=== PATIENT | female | born 1970 | race Two or more races ===

== ENCOUNTER → 2023-08-14 15:12 | Outpatient (BNVA) | payer OTHER, SELFPAY | PROVIDERS: PCP Internal Medicine; Visit Provider Physician Assistant ==

== ENCOUNTER 2023-09-09 15:24 | Outpatient (AMB) | payer OTHER, SELFPAY ==
--- NOTE | 2023-09-09 15:25 | MHC.OFFVISWM ---
Intake VS Expanded 09/09/23 15:36 BP 171/79 H Blood Pressure Location Rt brachial Blood Pressure Position Sitting Pulse 108 H Pulse Source Pulse Oximeter Temp 97.2 F Temperature Source Temporal Artery Scan Pulse Oximetry 96 Oxygen Delivery Method Room Air Height 5 ft 4 in Weight 215 lb BMI 36.9 Body Fat % 45.6 Body Fat Mass 98.2 Fat Free Mass 116.8 Visceral Fat Rating 13.0 Body Water % 38.7 Body Water Mass 83.2 Muscle Mass/Score 110.8 Basal Metabolic Rate/Score 1,642 Intake Visit Reasons: SWL vs MWL BMI 36.6 Lead Teller Required: No Allergies amoxicillin Allergy (Mild, Uncoded 09/09/23 15:31) swelling Medication List - Last Reconciled 09/09/23 by KEVON Molina duloxetine 120 mg PO DAILY metoprolol succinate ER 50 mg PO DAILY valsartan-hydrochlorothiazide 320-25 mg 1 tab PO DAILY HPI HPI Comments History of Present Illness Details Pt is here to start the [facility] Weight Management surgical weight loss program. She heard about our program from her family. Her goal is to lose weight and achieve a healthy lifestyle as well as to improve, if not resolve, obesity related medical conditions, including htn. She reports first being concerned about her weight 10 years ago, highest weight to date was 215. Current weight is 215 pounds with a BMI of 36.9. Her weight upon gfirst presentation to the [facility] on 08/14/23 was 213.2 pounds with a BMI of 36.6. She has tried multiple methods of weight loss including fad diets, hypnosis without permanent results. She lives with her family. 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 She wakes at:?630 am, and goes to bed at?10 pm. Dinner is at 6pm. Breakfast: coffee w cream AM snack: special K cereal, raison bran w whole milk or DD refresher and DD sandwich Lunch: skip or oui yogurt w granola topping PM snack: cheese, peanuts, candy, Dinner: rice and beans meat, salad sometimes. After dinner: chips, popcorn, cake, cookies Other snacks: as above Liquids: 32 oz water, rare lurdes keily on weekends, iced tea, DD strawberry refresher Alcohol/marijuana/tobacco intake: 3 drinks 2 x per month, no cannabis, no tobacco Exercise: none, could join a gym. GERD score: 5 CLIFFORD score: 3 ESS score: 10 QOL score: 80 PFSH Surgical History Hx of bladder endoscopy Hx of colonoscopy Family History Paternal Aunt Breast cancer Stomach cancer Father Throat cancer Social History Alcohol intake: current Alcohol intake frequency: holidays/special occasions only Alcohol type: wine and hard liquor Patient Tobacco Use Status: Never used Tobacco Physical Exam Const General: cooperative, healthy appearing and no acute distress Orientation/consciousness: patient oriented x3 HEENT Head: Yes normal to inspection Ears: hearing grossly normal bilaterally General nose exam: Normal external nose present Face and sinus: Yes normal facial exam Eyes General: appearance normal, both eyes and all related structures Resp Effort & Inspection: normal respiratory effort Auscultation: clear to auscultation bilaterally Cardio Rate: regular rate Rhythm: regular rhythm Heart sounds: S1 normal heart sound present and S2 normal heart sound present GI Inspection: Yes normal to inspection, No distended and Yes obesity Palpation (GI): Soft to palpation, nontender and no guarding Auscultation: normal bowel sounds Skin General skin exam: no rashes or lesions noted Neuro General: patient oriented x3 Extrem General: No edema Psych Appearance: grossly normal Mental Status: mental status grossly normal Speech and movement: Normal speech and movement present Affect: normal affect Attitude: cooperative Assessment & Plan Assessment & Plan (1) Obesity (BMI 30-39.9): Code(s): E66.9 - Obesity, unspecified Plan: This is a?53 yo female who will start our SWL program to prepare for bariatric surgery.? Blood work, h pylori , CXR, ECG, Abd US and UGI have been ordered. She is being scheduled for RD and BH initial consultations. She will start SWL classes and watch the first three videos before her next appointment. ? Adequate sleep of 7-8 hours per night discussed, awakening at 06:30 and going to bed at 10 ? Purchase body composition analyzer scale (Renpho recommended) and check weight weekly. The best time to do this is first thing in the morning after going to the bathroom. 1. Nutritional counseling: Be sure to careful read the number of scoops per shake Start with 2 Celebrate Rebuild shakes ([facility], [employer], [employer]) First shake (1.5 scoops in 12 oz unsweetened almond milk) at 730am-930am, Second shake (1 scoop in 10 oz of unsweetened almond milk) at 1030am-1230pm 2 Celebrate protein bars (Celebrate bars at [facility], [employer], [employer]) First bar at 130pm-330pm. Dinner at 530pm (8 forks of protein and 8 forks of salad/vegetables). Meal to include lean meat (beef, fish, pork, turkey, chicken), cooked vegetables or a salad with olive oil and/or fruits (berries, pears, apples, kiwi). Avoid salt, breads, potatoes, rice, pasta, desserts. Second bar at 730pm-930pm. Try to drink 64 oz of water daily and avoid soda and juices. ?2. Each shake would be drunk slowly, like coffee in a period of 2 hours. ?3. Cut each bar in 4 pieces and eat each piece in 30 min ?to make each bar last 2 hours. ?4. I emphasized the importance of measuring accurately the food portion and measure it carefully when serving the food on the plate ?5. The meal portions include 8 full-size forks of meat and 8 full-size forks of salad. You always eat the meat portion but you can replace up to half of the forks of salad/vegetables with rice, potatoes or pasta, or a fruit ?if you like. The less you do it the better weight loss will be. ?6. One full-size fork is what can be scooped on the fork without falling aside and not what can be bit with the fork. Use regular forks like those you find in a typical restaurant. ?7.? Please send me weight measurements as soon as possible and then once a week. Always include your diet and exercise plan. Alternatively come weekly at the office for weight checks and send me the measurements. ?8. Exercise counseling: Begin by watching a stretching for beginners video. Start slowly and begin to stretch your muscles. You should do this before and after each exercise session to prevent injury. Please join [employer] gym near your home. Ask the manager automotive or one of the trainers how to use the machines if you are unfamiliar with them. Start elliptical with a resistance of 2. Increase resistance by 1 every 3 min to your most comfortable resistance with a max resistance of 8. Reduce the resistance by 1 every 3 minutes back down to 2 and repeat cycles for 300 calories. Alternatively, start treadmill with a speed of 3.0 and incline of 0, increasing incline by 1 every 3 minutes to the highest comfortable level (max 6 for now) then decrease in the same fashion. Repeat process to a goal of 300 calories. Goal of 2000 calories burned or more weekly. You may also consider use of the stationary bike. The easiest would be to chose the fat-burn or interval training program on the machine and do this until you reach the 300 calorie goal. Alternatively, you can manually adjust the resistance in a similar fashion as mentioned above, (resistance of 2-8 with a goal speed of 12 mph). Tracking calories is essential. 9. Alternatively start walking outside daily, tracking calories with a goal of 300 calories per day, daily. You can download the chaparrita [employer] which can track your time, distance and calories while walking outside. You press start in the chaparrita when you start and then stop when you are finished. 10.? It is important to communicate by text weekly your weight and if you are having any problems with the plans. It is also advised to avoid now and for 18 months after surgery. 11. Please get labs, EKG and chest X-Ray within 1 week. 12. Discussed and answered all questions regarding?obtained consent to participate in the [place] [facility]?Registry. 13. Please follow the diet plan exactly, without any change. If you do not like something about the plan or you feel hungry, you need to communicate with me so I can help you revise the plan. You should not change the plan yourself. Text me at [phone] 14. Goal is to lose at least 12 pounds in the first month 15. Goal is to lose 10% of your weight before surgery, which is about 21 lbs. Ultimate weight goal: 194 lbs before surgery Patient is morbidly obese and is not considered stable at this time.?I spent a total of 70 minutes reviewing/updating records, examining the patient and counseling the patient on weight management as detailed above. Orders: Orders Hemoglobin A1c Today E66.9 - Obesity, unspecified, I10 - Essential (primary) hypertension H Pylori Breath Test Today E66.9 - Obesity, unspecified, I10 - Essential (primary) hypertension Zinc Today E66.9 - Obesity, unspecified, I10 - Essential (primary) hypertension Vitamin A Today E66.9 - Obesity, unspecified, I10 - Essential (primary) hypertension TSH reflex Free T4 Today E66.9 - Obesity, unspecified, I10 - Essential (primary) hypertension Vitamin D 25-OH Total Today E66.9 - Obesity, unspecified, I10 - Essential (primary) hypertension US abdomen comp w elastography Today E66.9 - Obesity, unspecified, I10 - Essential (primary) hypertension XR chest 2V Today E66.9 - Obesity, unspecified, I10 - Essential (primary) hypertension ECG 12 lead EKG Today E66.9 - Obesity, unspecified, I10 - Essential (primary) hypertension Insulin Today E66.9 - Obesity, unspecified, I10 - Essential (primary) hypertension Complete Blood Count Auto Diff Today E66.9 - Obesity, unspecified, I10 - Essential (primary) hypertension Lipid Panel Today E66.9 - Obesity, unspecified, I10 - Essential (primary) hypertension IRON PROFILE Today E66.9 - Obesity, unspecified, I10 - Essential (primary) hypertension Comprehensive Met. Panel Today E66.9 - Obesity, unspecified, I10 - Essential (primary) hypertension Vitamin B12 and Folate Today E66.9 - Obesity, unspecified, I10 - Essential (primary) hypertension C Reactive Protein Today E66.9 - Obesity, unspecified, I10 - Essential (primary) hypertension Vitamin B1 Today E66.9 - Obesity, unspecified, I10 - Essential (primary) hypertension Ferritin Today E66.9 - Obesity, unspecified, I10 - Essential (primary) hypertension FL upper GI w air Today E66.9 - Obesity, unspecified, I10 - Essential (primary) hypertension Referrals Nutrition/Dietitian Referral E66.9 - Obesity, unspecified, I10 - Essential (primary) hypertension Behavioral Health Referral E66.9 - Obesity, unspecified, I10 - Essential (primary) hypertension Coding Level of Care Code New Pt Level 5 (25131) Diagnoses Obesity (BMI 30-39.9) E66.9 Time Spent (min) 70
[2023-09-09 15:36] VITALS: BP 171/79; PULSE 108; TEMP 36.2; O2SAT 96; BMI 36.9
== END 2023-09-09 16:54 | disposition home or self-care (01) ==
PROVIDERS: PCP Internal Medicine; Visit Provider Physician Assistant Surgical
DX: E66.9 Obesity, unspecified (principal); Z68.36 Body mass index [BMI] 36.0-36.9, adult
CPT/HCPCS: 99205

== ENCOUNTER → 2023-09-09 15:24 | Outpatient (BNVA) | payer OTHER, SELFPAY | PROVIDERS: PCP Internal Medicine; Visit Provider Physician Assistant Surgical ==

== ENCOUNTER 2023-09-20 07:27 | Outpatient (REF) | payer OTHER, SELFPAY ==
[2023-09-20 07:58] LABS: MANUAL DIFF FLAG NO
[2023-09-20 08:20] LABS: Basophils Percent Auto 0.2 % (0-2); Eosinophils Absolute Auto 0.1 X10*3/uL (0.0-0.4); Eosinophils Percent Auto 0.7 % (0-4); Hematocrit 39.8 % (37.0-47.0); Imm Gran Abs Auto 0.03 X10*3/uL (0.00-0.03); Imm Gran Pct Auto 0.3 % (0.0-0.4); Lymphocytes Absolute Auto 2.6 X10*3/uL (1.2-4.9); Lymphocytes Percent Auto 25.6 % (20-40); Mean Corpuscular HGB Conc 32.7 g/dl (31.0-35.0); Mean Corpuscular Hemoglobin 26.9 pg (27.0-33.0); Mean Corpuscular Volume 82.2 fL (80.0-98.0); Mean Platelet Volume 9.1 fL (9.4-12.3); Monocytes Absolute Auto 0.7 X10*3/uL (0.1-1.2); Monocytes Percent Auto 6.9 % (2-11); Neutrophils Absolute Auto 6.6 x10*3/uL (2.0-8.3); Neutrophils Percent Auto 66.3 % (45-73); Platelet Count 431 X10*3/uL (160-400); Red Blood Count 4.84 X10*6/uL (4.20-5.50); Red Cell Distribution Width 14.1 % (11.0-16.0)
[2023-09-20 08:21] LABS: Estimated Average Glucose 134 mg/dL; Hemoglobin A1c % 6.3 % (<6.0)
[2023-09-20 08:50] LABS: Alanine Aminotransferase 92 U/L (0-31); Albumin Level 4.3 g/dL (3.5-5.0); Alkaline Phosphatase 60 U/L (39-117); Anion Gap 16 (12-20); Aspartate Amino Transferase 80 U/L (5-31); Bilirubin Total 0.4 mg/dL (0.0-1.0); Blood Urea Nitrogen 23 mg/dL (9-16); C Reactive Protein 1.66 mg/dL (< or = 0.50); Calcium 9.9 mg/dL (8.4-10.2); Carbon Dioxide 27 mmol/L (22-29); Chloride 98 mmol/L (96-108); Cholesterol 249 mg/dL (<200); Estimated Glomerular Filt Rate > 60; Glucose Random 146 mg/dL (60-115); HDL Cholesterol 58 mg/dL (>40); Iron 75 mcg/dL (30-160); LDL Cholesterol Calculated 170 mg/dL (<100); Percent Iron Saturation 24 % (15-50); Potassium 3.2 mmol/L (3.3-5.1); Sodium 138 mmol/L (135-145); Total Iron Binding Capacity 308 mcg/dL (228-428); Total Protein 7.9 g/dL (6.5-8.0); Triglycerides 107 mg/dL (<150); Unsaturated Iron Binding 233 ug/dL
[2023-09-20 09:08] LABS: Ferritin 350 ng/mL (10-250); Insulin 24 uU/mL (2-29); TSH reflex Free T4 1.43 uIU/mL (0.32-4.0)
[2023-09-20 09:37] LABS: Vitamin B12 426 pg/mL (200-900)
[2023-09-23 13:54] LABS: Zinc 76 mcg/dL (60-130)
[2023-09-24 23:57] LABS: Vitamin A 60 mcg/dL (38-98)
[2023-09-25 15:43] LABS: Vitamin B1 11 nmol/L (8-30)
== END 2023-09-20 07:28 | disposition home or self-care (01) ==
LOC: HO.LAB 07:27
PROVIDERS: Visit Provider Physician Assistant Surgical
DX: E66.9 Obesity, unspecified (principal); I10 Essential (primary) hypertension
CPT/HCPCS: 36415; 80053; 80061; 82306; 82607; 82728; 82746; 83036; 83525; 83540; 84425; 84443; 84590; 84630; 85025; 86140

== ENCOUNTER 2023-09-24 13:00 | Outpatient (AMB) | payer OTHER, SELFPAY ==
--- NOTE | 2023-09-24 12:38 | A.OFFWM_ITS ---
Intake Intake Visit Reasons: (TV) BH Intake Allergies amoxicillin Allergy (Mild, Uncoded 09/09/23 15:31) swelling PFSH Surgical History Hx of bladder endoscopy Hx of colonoscopy Family History Paternal Aunt Breast cancer Stomach cancer Father Throat cancer Social History Alcohol intake: current Alcohol intake frequency: holidays/special occasions only Alcohol type: wine and hard liquor Patient Tobacco Use Status: Never used Tobacco Behavioral Health Assessment Weight Management Therapy Therapy Notes Details Patient is looking to have weight loss surgery to help improve her health and quality of life. She reported a history of depression in her 20's, she went briefly to therapy at that time when she became a single mother. Also saw a somatic therapist in the past. She has no history of problems with drugs or alcohol. Presenting Concerns Referral Source provider Reason for referral weight loss surgery evaluation Precipitating Event obesity Living Situation Current Living Situation Own At risk of losing current housing? No Satisfied with current living situation? No Comments Patient lives with her , son and two grandchildren. Food/Weight/Diet Expectations of change weight loss and maintenance History/Relationship with food At home alone, bored and would eat. She reported eating sandwiches, yogurts, Icelandic food, rice, beans, air fried foods, snacking after dinner on chips, cupcakes, cake or other salty/sweet foods, skipping breakfasts. History/Relationship with weight Patient reported being at her heaviest. 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 No Do you feel out of control when you eat a large amount of food in a short period of time? No Do you eat large amounts of food rapidly and typically alone? Yes Night Eating Do you wake up at least once during the night to eat? No If you wake up in the night, do you find that it is necessary to eat something in order to fall back asleep? No Do you have little or no appetite in the morning and feel very hungry in the evening, often overeating between dinner and when you go to bed? Yes Social History Family history and relationship Patient has two adult sons. She is . She is three sisters. Her mother is living but with dementia and not doing well, Father ten years ago. Parental/Familial plug sorter obligations grandchildren live with her as well as her adult son. Developmental history and status no issues Social support , two of her sisters Adventism/Spirituality Buddhist Cultural/Ethnic information Legal Involvement and History Current or historical involvement with the legal system? none Education Highest grade completed high school, some college Preferred learning style Auditory, Verbal, Written, Learn by doing and Visual Currently enrolled in educational program? No Interested in further educational program? 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 No Meaningful activities camping, movies, spending time with family, in the past she would do salsa classes. Financial Situation Describe current financial situation Comfortable Financial assistance? None Service Service? No Mental Health and Addiction Treatment Current/Past substance abuse? No Current/Past addictive behavior concerns? No Medical and Physical Health Summary Physical exam in the last year? Yes Pain Screening Current pain? No Pain in the last few months? No Medications Is the patient compliant with medications? Yes Does the patient have Issa Guardian in place? Not applicable Does the patient use complimentary health approaches? No Trauma/Abuse History History of trauma? Yes Community Violence Past Questionnaires PHQ-9 Over the last 2 weeks, how often have you been bothered by any of the following problems? 1. Little interest or pleasure in doing things: several days 2. Feeling down, depressed, or hopeless: not at all 3. Trouble falling or staying asleep, or sleeping too much: more than half the days 4. Feeling tired or having little energy: more than half the days 5. Poor appetite or overeating: more than half the days 6. Feeling bad about yourself - or that you are a failure or have let yourself or your family down: several days 7. Trouble concentrating on things, such as reading the newspaper or watching television: several days 8. Moving or speaking so slowly that other people could have noticed. Or the opposite - being so fidgety or restless that you have been moving around a lot more than usual: not at all 9. Thoughts that you would be better off or of hurting yourself in some way: not at all Total score: 9 Source: Developed by Drs. Ramone Myers, Michelle More, Steve Sheldon and colleagues, with an educational doris from [employer]. Binge Eating Scale Group 1 A. I don't feel self-conscious about my wt. or body size when I'm with others. B. I feel concerned about how I look to others, but it normally does not make me fell disappointed with myself C. I do get self-conscious about my appearance and wt. which makes me feel disappointed in myself. D. I feel very self-conscious about my wt. and frequently I feel intense shame and disgust for myself. I try to avoid social contacts because of my self- consciousness. Response Group 1: C Group 2 A. I don't have any difficulty eating slowly in the proper manner. B. Although I seem to gobble down foods, I don't end up feeling stuffed because of eating to much. C. At times, I tend to eat quickly and then, I feel uncomfortably full afterwards. D. I have the habit of bolting down my food, without really chewing it. When this happens I usually feel uncomfortably stuffed because I've eaten to much. Response Group 2: B Group 3 A. I feel capable to control my eating urges when I want to. B. I feel like I have failed to control my eating more than the average person. C. I feel utterly helpless when it comes to feeling in control of my eating urges. D. Because I feel so helpless about controlling my eating I have become very desperate about trying to get control. Response Group 3: B Group 4 A. I don't have the habit of eating when I'm bored. B. I sometimes eat when I'm bored, but often I'm able to get busy and get my mind off food. C. I have a regular habit of eating when I'm bored, but occasionally, I can use some other activity to get my mind off eating. D. I have a strong habit of eating when I'm bored. Nothing seems to help me breath the habit. Response Group 4: B Group 5 A. I'm usually physically hungry when I eat something. B. Occasionally, I eat something on impulse even though I really am not hungry. C. I have the regular habit of eating foods, that I might not really enjoy, to satisfy a hungry feeling even though physically, I don't need the food. D. Although I'm not physically hungry, I get a hungry feeling in my mouth that only seems to be satisfied when I eat a food, like sandwich, that fills my mouth. Sometimes, when I eat the food to satisfy my mouth hunger, I then spit the food out so I won't gain weight. Response Group 5: A Group 6 A. I don't feel any guilt or self-hate after I overeat. B. After I overeat, occasionally I feel guilt or self-hate. C. Almost all the time I experience strong guilt or self-hate after I overeat. Response Group 6: A Group 7 A. I don't lose total control of my eating when dieting even after periods when I overeat. B. Sometimes when I eat a forbidden food on a diet, I feel like I blew it and eat even more. C. Frequently, I have the habit of saying to myself, I've blown it now, why not go all the way, when I overeat on a diet. When that happens I eat more. D. I have a regular habit of starting a strict diets for myself but I break the diets by going on an eating binge. My life seems to be either a feast or famine. Response Group 7: D Group 8 A. I rarely eat so much food that I feel uncomfortably stuffed afterwards. B. Usually about once a month, I each such a quantity of food, I end up feeling very stuffed. C. I have regular periods during the month when I eat large amounts of food, either at mealtime or at snacks. D. I eat so much food that I regularly feel quite uncomfortable after eating and sometimes a bit nauseous. Response Group 8: A Group 9 A. My level of calorie intake does not go up very high or go down very low on a regular basis. B. Sometimes after I overeat, I will try to reduce my caloric intake to almost nothing to compensate for the excess calories I've eaten. C. I have a regular habit of overeating during the night. It seems that my routine is not to be hungry in the morning but overeat in the evening. D. In my adult years, I have had week-long periods where I practically starve myself. This follows periods when I overeat. It seems I live a life of either feast or famine. Response Group 9: D Group 10 A. I usually am able to stop eating when I want to. I know when enough is enough. B. Every so often, I experience a compulsion to eat which I can't seem to control. C. Frequently, I experience strong urges to eat which I seem unable to control, but at other times I can control my eating urges. D. I feel incapable of controlling urges to eat. I have a fear of not being able to stop eating voluntarily. Response Group 10: A Group 11 A. I don't have any problem stopping eating when I feel full. B. I usually can stop eating when I feel full but occasionally overeat leaving me feeling uncomfortably stuffed. C. I have a problem stopping eating once I start and usually I feel uncomfortably stuffed after I eat a meal. D. Because I have a problem not being able to stop eating when I want, I sometimes have to induce vomiting to relieve my stuffed feeling. Response Group 11: B Group 12 A. I seem to eat just as much when I'm with others, Family social gatherings as when I'm by myself. B. Sometimes, when I'm with other persons, I don't eat as much as I want to eat because I'm self-conscious about my eating. C. Frequently, I eat only a small amount of food when others are present, because I'm very embarrassed about my eating. D. I feel so ashamed about overeating that I pick times to overeat when I know no one will see me. I feel like a closet eater. Response Group 12: B Group 13 A. I eat three meals a day with only an occasional between meal snack. B. I eat 3 meals a day, but I also normally snack between meals. C. When I am snacking heavily, I get in the habit of skipping regular meals. D. There are regular periods when I seem to be continually eating, with no planned meals. Response Group 13: C Group 14 A. I don't think much about trying to control unwanted eating urges. B. At least some of the time, I feel my thoughts are pre-occupied with trying to control my eating urges. C. I feel that frequently I spend much time thinking about how much I ate or about trying not to eat anymore. D. It seems to me that most of my waking hours are pre-occupied by thoughts about eating or not eating. I feel like I'm constantly struggling not to eat. Response Group 14: B Group 15 A. I don't think about food a great deal. B. I have strong craving for food but they last only for brief periods of time. C. I have days when I can't seem to think about anything else but food. D. Most of my days seem to be pre-occupied with thoughts about food. I feel like I live to eat. Response Group 15: A Group 16 A. I usually know whether or not I'm physically hungry. I take the right portion of food to satisfy me. B. Occasionally, I feel uncertain about knowing whether or not I'm physically hungry. A these times it's hard to know how much food I should take to satisfy me. C. Even though I might know how many calories I should eat, I don't have any idea what is a normal amount of food for me. Response Group 16: B Binge Eating Score: 17 Score less than 17 Minimal Risk Score between 18-26 Moderate Risk Score between 27-46 High Risk Assessment & Plan Assessment & Plan (1) Obesity (BMI 30-39.9): Code(s): E66.9 - Obesity, unspecified (2) HTN (hypertension): Code(s): I10 - Essential (primary) hypertension Plan Patient is doing well and is cleared for surgery when ready. She has no serious mental health barriers and was encouraged to utilize all supports Telehealth Telehealth Location of provider rendering services: other Location of patient: other Patient Identification confirmed using: Name, : Yes Telehealth method: voice only Patient verbally consented to treatment: Yes Patient verbally consented to billing insurance company: Yes Patient informed of any privacy concerns related to visit: Yes Minutes spent on Phone/Video with Pt.: 45 Coding Level of Care Code Tele Psy Diag Eval (87703) Diagnoses Obesity (BMI 30-39.9) E66.9 HTN (hypertension) I10 Time Spent (min) 45
== END 2023-09-24 13:12 | disposition home or self-care (01) ==
LOC: HO.HBST 13:00
PROVIDERS: PCP Internal Medicine; Visit Provider Counselor Mental Health
DX: E66.9 Obesity, unspecified (principal); I10 Essential (primary) hypertension
CPT/HCPCS: 90791

== ENCOUNTER → 2023-09-24 13:00 | Outpatient (BNVA) | payer OTHER, SELFPAY | PROVIDERS: PCP Internal Medicine; Visit Provider Counselor Mental Health ==

== ENCOUNTER 2023-09-26 09:20 | Outpatient (REF) | payer OTHER, SELFPAY ==
--- NOTE | ~2023-09-26 | US_ITS ---
EXAMINATION: US COMPLETE ABDOMEN WITH LIVER ELASTOGRAPHY CLINICAL INFORMATION: Obesity COMPARISON: None available. TECHNIQUE: Real-time imaging of the abdominal viscera. Noninvasive ultrasound liver fibrosis assessment is performed using [employer] ElastPQ point quantification shear wave elastography (2D-SWE) with a C5-2 MHz transducer. Multiple elastography samples are obtained. FINDINGS: PANCREAS: The visualized pancreatic head and body are normal in appearance. The remainder of the pancreas is obscured from visualization by the overlying bowel gas. ABDOMINAL AORTA: The proximal, middle, and distal aortic segments are normal in caliber. INFERIOR VENA CAVA: Visualized portions are normal. LIVER: Echotexture is increased suggestive of fatty infiltration with focal fatty sparing adjacent to the gallbladder liver upper normal in size. Liver normal in contour. No focal lesion or intrahepatic biliary duct dilatation. The right lobe measures 17 cm in length. The left lobe measures 14 cm in length. Portal flow is normal Shear wave liver elastography median stiffness is 1.2 m/s (reference: normal median stiffness is 1.3 m/s or less). IQR/median stiffness to assess sampling precision is 0.02 (reference: good quality data set is IQR/median stiffness of 0.15 or less). GALLBLADDER: Unremarkable. No definite gallstones. Normal thickness gallbladder wall. COMMON BILE DUCT: Normal in caliber measuring 0.40, 0.6 cm in diameter. RIGHT KIDNEY: Normal. No hydronephrosis. No renal calculi or focal parenchymal lesions. The kidney measures 11 cm in maximum dimension. LEFT KIDNEY: Normal. No hydronephrosis. No renal calculi or focal parenchymal lesions. The kidney measures 11 cm in maximum dimension. SPLEEN: Normal. The spleen measures 9 cm in maximum dimension. FREE FLUID: None. US/US abdomen comp w elastography IMPRESSION: 1. Impression: Echogenic liver suggestive of fatty infiltration with focal fatty sparing adjacent to the gallbladder. Liver upper normal in size. 2. Liver elastography: Normal. Adequate liver sampling. REFERENCE: Society of Radiologists in Ultrasound Liver Stiffness Thresholds (2020): LIVER STIFFNESS THRESHOLDS: *Liver Stiffness equal or less than 1.3 m/s: High probability of being normal. *Liver Stiffness less than 1.7 m/s: In the absence of other known clinical signs, rules out compensated advanced chronic liver disease. *Liver Stiffness 1.7-2.1 m/s: Suggestive of compensated advanced chronic liver disease but need further test for confirmation. *Liver Stiffness over 2.1 m/s: Rules in compensated advanced chronic liver disease. *Liver Stiffness over 2.4 m/s: Suggestive of clinically significant portal hypertension. QUALITY OF DATA SET: *IQR/Median value equal or less than 0.15 implies a quality data set. *IQR/Median value over 0.15 implies a poor quality data set. SIGNIFICANT CHANGE FROM PRIOR EXAM: Significant change if liver stiffness measurement is 10% or greater from prior exam. OTHER CONSIDERATIONS: The stage of liver fibrosis may be overestimated in the setting of acute hepatitis, liver inflammation, elevated liver function tests, hepatic vascular congestion, obstructive cholestasis, non-fasting state, and infiltrative diseases such as amyloidosis and lymphoma. In some patients with NAFLD, the liver stiffness thresholds for compensated advanced chronic liver disease may be lower. In causes other than viral hepatitis and NAFLD, liver stiffness thresholds are not well established.
--- NOTE | ~2023-09-26 | XR_ITS ---
EXAMINATION: XR CHEST CLINICAL INFORMATION: Weight management evaluation COMPARISON: None available. TECHNIQUE: 2 views of the chest were obtained. FINDINGS: No airspace consolidation or vascular congestion. No evidence for pneumothorax. Hilar regions and pulmonary vascularity unremarkable. Pleural surfaces appear clear. There are minimal thoracic spondylitic changes. XR/XR chest 2V IMPRESSION: No evidence for acute process.
== END 2023-09-26 09:21 | disposition home or self-care (01) ==
LOC: HO.US 09:20
PROVIDERS: PCP Internal Medicine; Visit Provider Physician Assistant Surgical
DX: E66.9 Obesity, unspecified (principal); I10 Essential (primary) hypertension
CPT/HCPCS: 71046; 76700; 76981

== ENCOUNTER 2023-10-15 10:27 | Day surgery (SDC) | payer OTHER, SELFPAY ==
[2023-10-13 11:30] VITALS: BMI 36.9
--- NOTE | 2023-10-13 13:06 | P.CONAN_ITS ---
Documented by User: Angela Lira NP 10/13/23 13:07 HPI - Anesthesia Eval Consult details Narrative: 53yo F for Upper Endoscopy PMFSH Active Problems Active Problems: All Active Problems HTN (hypertension) (Acute) Obesity (BMI 30-39.9) (Acute) Family History Family History Paternal Aunt Breast cancer Stomach cancer Father Throat cancer Surgical History Surgical History Hx of bladder endoscopy Hx of colonoscopy Social History Social History Alcohol intake: current Alcohol intake frequency: holidays/special occasions on ly Alcohol type: wine and hard liquor Patient Tobacco Use Status: Never used Tobacco Use of substances other than those prescribed or required for medical reasons: No Are you DNR?: No Advance Directives: No Advance Directives Information Provided: Yes Meds Allergies Allergy/AdvReac Type Severity Reaction Status Date / Time amoxicillin Allergy Mild swelling Uncoded 10/15/23 11:13 Home Medications ?Medication ?Instructions ?Recorded ?Confirmed ?Last Taken ?Type duloxetine 60 mg capsule,delayed 120 mg PO DAILY 09/09/23 10/15/23 10/14/23 History release metoprolol succinate 50 mg 50 mg PO DAILY 09/09/23 10/15/23 10/14/23 History tablet,extended release 24 hr valsartan 320 1 tab PO DAILY 09/09/23 10/15/23 10/14/23 History mg-hydrochlorothiazide 25 mg tablet Exam Height,Weight and Vital Signs: Height 5 ft 4 in Weight 97.522 kg Pertinent Lab Results Pertinent Lab Results: Laboratory Tests 09/20/23 07:57 WBC 10.0 Hgb 13.0 Hct 39.8 Plt Count 431 H Sodium 138 Potassium 3.2 L Chloride 98 Carbon Dioxide 27 BUN 23 H Creatinine 0.83 Assessment and Plan Assessment Anesthesia Assessment: Chart Reviewed Documented by User: Beatriz Edwards MD 10/15/23 12:35 HPI - Anesthesia Eval Consult details Narrative: 53yo F for Upper Endoscopy 10/15/23: ? LBBB on monitor. Patient has no history. Will obtain 12 lead ekg. 12 lead ekg: NSR 98 . Non-specific ST-T wave abnormality PMFSH Family History Family History Paternal Aunt Breast cancer Stomach cancer Father Throat cancer Family history of problems with anesthesia: No Surgical History Surgical History Hx of bladder endoscopy Hx of colonoscopy History of Problems with Anesthesia: No Social History Social History Alcohol intake: current Alcohol intake frequency: holidays/special occasions only Alcohol type: wine and hard liquor Patient Tobacco Use Status: Never used Tobacco Use of substances other than those prescribed or required for medical reasons: No Are you DNR?: No Advance Directives: No Advance Directives Information Provided: Yes Meds Allergies Allergy/AdvReac Type Severity Reaction Status Date / Time amoxicillin Allergy Mild swelling Uncoded 10/15/23 11:13 Home Medications ?Medication ?Instructions ?Recorded ?Confirmed ?Last Taken ?Type duloxetine 60 mg capsule,delayed 120 mg PO DAILY 09/09/23 10/15/23 10/14/23 History release metoprolol succinate 50 mg 50 mg PO DAILY 09/09/23 10/15/23 10/14/23 History tablet,extended release 24 hr valsartan 320 1 tab PO DAILY 09/09/23 10/15/23 10/14/23 History mg-hydrochlorothiazide 25 mg tablet Exam Height,Weight and Vital Signs: Height 5 ft 4 in Weight 97.522 kg Vital Signs Temp Pulse Resp BP Pulse Ox O2 Del Method 10/15/23 11:45 96.9 F 104 H 16 133/79 98 Room Air Airway Mallampati Class: II TM Dist: >3cm Neck ROM: Full Loose/Missing/Broken Teeth: No (Denies broken, loose, missing teeth) Heart: RRR Lungs: CTAB Assessment and Plan Assessment Anesthesia Assessment: Anesthesia Plan Discussed and Chart Reviewed Final Anesthetic Review Family History of Problems with Anesthesia: No History of Problems with Anesthesia: No NPO: Yes ASA Class: III Final Preanesthetic Review: No Changes in Pt Med Stat, Meds/Allgs Chart Reviewed, Consent Obtained/Reviewed and Anes Risks/Benef Reviewed Patient Risk: Intermediate Assessment/Block/Sedation in SS: Assess/Block/Sedation-SS Anesthetic Plan Anesthetic Plan: MAC: and TIVA Disposition: Standard PACU
--- NOTE | 2023-10-15 | ECG_ITS ---
Test Reason : PREOP Blood Pressure : / mmHG Vent. Rate : 098 BPM Atrial Rate : 098 BPM P-R Int : 152 ms QRS Dur : 084 ms QT Int : 362 ms P-R-T Axes : 059 016 -07 degrees QTc Int : 462 ms Normal sinus rhythm Nonspecific ST and T wave abnormality Abnormal ECG No previous ECGs available Referred By: Beatriz Edwards Electronically Signed By:LATIA SORIANO MD
[2023-10-15 11:12] VITALS: BMI 34.8
[2023-10-15 11:45] VITALS: BP 133/79; PULSE 104; RESP 16; TEMP 36.1; O2SAT 98
[2023-10-15] MEDS: Lactated Ringers 1,000 ML 80 ML IVCONT (11:46)
--- NOTE | 2023-10-15 12:10 | MHC.SHP ---
Pre-Procedural Eval Section A - 24 Hr Update-Section A only Date of Service: 10/15/23 The patient is an INPATIENT: No The patient has been examined within 24 hours of the surgical procedure. The History & Physical has been completed within 30 days and I have reviewed it.: No Section B - Complete if H&P > 30 days Chief Complaint: Morbid (severe) obesity due to excess calories Details of Present Illness: GERD Relevant Family History (Specify if Yes): No Relevant Social History: None Present Medications: None Medical History: No relevant PMH History of Previous Operations: No relevant previous surgery Allergies: Allergies Allergy/AdvReac Type Severity Reaction Status Date / Time amoxicillin Allergy Mild swelling Uncoded 10/15/23 11:13 Review of Systems Sugical H&P ROS: Negative: Constitution, Cardiovascular, Respiratory, Neurological, Psychiatric, Hem-Onc, Allergic/Immunologic, Gastrointestinal, Genitourinary, Musculoskeletal, Integumentary, Endocrine and Eyes/Ears/Nose/Throat Exam Surgical H&P Exam: Normal: HEENT, Normal: Heart, Normal: Lungs, Normal: Extremities, Normal: Abdomen, Normal: Skin and Normal: Neurological Plan Diagnosis/Plan: Unchanged (EGD to assess etiology of GERD. Risks of bleeding and perforation were discussed with the patient and she is in agreement with the plan.) I have reviewed the history and physical and performed a pertinent physical examination on my patient. No changes have occurred unless specified. Time Spent With Patient Time: Total time managing care of this patient today ____ minutes.
--- NOTE | 2023-10-15 12:13 | PM.OP ---
Brief Operative Note Date of Service: 10/15/23 Pre-op diagnosis: GERD Post-op diagnosis: same Procedure: PROCEDURE DATE: 10/15/23 PREOPERATIVE DIAGNOSIS: GERD POSTOPERATIVE DIAGNOSIS: ?Same as above. 1) Normal endoscopy PROCEDURE: Dlpzxzfa-zhllfk-axgjzolejoyj with biopsies Surgeon: Monty David M.D.. Ph.D. Compliance Representative Dealer: None ? Anesthesia: IV sedation Estimated blood loss: ?Minimal FINDINGS AND PROCEDURE: ? OPERATIVE INDICATIONS: ?The patient is a 53 year old female known to me who is interested in bariatric surgery. The patient has GERD. Based on this information I recommended an upper endoscopy to evaluate the patient's symptoms. Risks and complications of the surgery were discussed with the patient in advance particularly the possibility of perforation or bleeding that may require surgical intervention. The patient understood the risks and was in agreement with the plan. ? PROCEDURE: After informed consent was obtained by the patient, the patient was ?transferred to the Operating Room and was placed in the supine position.? After successful induction of IV sedation, a mouth block was inserted and the patient was placed in the left lateral decubitus position. An upper endoscopy was performed next, the oropharynx and esophagus appeared within the normal limits. There was no hiatal hernia. The z-line was smooth. Two biopsies were obtained from the distal esophagus 2-3 cm proximal to the GE junction and two additional biopsies from the GE junction. The stomach was entered and it appeared to be of normal size. There was no gastritis. There was no stricture or ulcer. A biopsy was obtained from the gastric fundus and antrum. No significant bleeding was noted from any of the biopsy sites. Retroflexion of the scope revealed a normal gastric fundus and a normal GE junction. The scope was then advanced into the duodenum which appeared to be normal as well. At that point the duodenum ?and the stomach were decompressed and the scope was withdrawn from the patient's mouth. The patient extubated and was transferred in stable condition to the Recovery Room for further care. I was present and performed all steps of the procedure. There were no residents to assist with this case. Cirilo David M.D., Ph.D. Surgeon: Jan David MD Anesthesia: MAC Was an Compliance Representative Dealer used for this Procedure?: No Estimated blood loss (mL): 0 IV fluids (mL): 400 Urine output (mL): 0 Pathology: other (1) antrum x1, 2) fundus x1, 3) GE junction x2, 4) distal esophagus x2) Condition: stable Disposition: PACU
[2023-10-15 13:13] VITALS: BP 143/84; PULSE 127; RESP 11; TEMP 36.5; O2SAT 100
[2023-10-15 13:28] VITALS: BP 130/86; PULSE 105; RESP 15; O2SAT 96
[2023-10-15 13:35] VITALS: BP 137/78; PULSE 96; RESP 14; TEMP 36.3; O2SAT 97
== END 2023-10-15 14:05 | disposition home or self-care (01) ==
PROVIDERS: PCP Internal Medicine; Visit Provider Surgery
PROC: 0DJ08ZZ Inspection of Upper Intestinal Tract, Via Natural or Artificial Opening Endoscopic (ICD-10-PCS; CPT 43235; principal; 2023-10-15 12:30)
DX: K21.9 Gastro-esophageal reflux disease without esophagitis (principal); E66.9 Obesity, unspecified; Z68.36 Body mass index [BMI] 36.0-36.9, adult; I10 Essential (primary) hypertension; Z88.1 Allergy status to other antibiotic agents; Z79.899 Other long term (current) drug therapy
CPT/HCPCS: 43239; 88305; 88313; 88342; 93005; J2704

== ENCOUNTER → 2023-10-15 10:27 | Outpatient (BNV) | payer OTHER, SELFPAY | PROVIDERS: PCP Internal Medicine; Visit Provider Surgery | DX: K21.9 Gastro-esophageal reflux disease without esophagitis (principal) | CPT/HCPCS: 43239 ==

== ENCOUNTER → 2023-10-15 12:15 | Outpatient (BNV) | payer OTHER, SELFPAY | PROVIDERS: PCP Internal Medicine; Visit Provider Internal Medicine Cardiovascular Disease | DX: R94.31 Abnormal electrocardiogram [ECG] [EKG] (principal) | CPT/HCPCS: 93010 ==

== ENCOUNTER 2023-10-21 09:37 | Outpatient (REF) | payer OTHER, SELFPAY ==
--- NOTE | ~2023-10-21 | FL_ITS ---
EXAMINATION: XR FLUOROSCOPY UPPER GI WITH AIR CLINICAL INFORMATION: Preop evaluation prior to bariatric surgery COMPARISON: None TECHNIQUE: Fluoroscopic air contrast upper GI examination was performed utilizing standard techniques with thin and thick barium and effervescent granules. Numerous spot images were obtained. FINDINGS: Lateral cine images of the oropharynx and hypopharynx demonstrate normal swallow mechanism with normal epiglottic inversion and soft palate elevation. No tracheal penetration, glottic or subglottic aspiration identified. No nasopharyngeal reflux present. Hypopharyngeal structures appear normal without evidence of mass or diverticulum. There was no significant cricopharyngeal achalasia. Dual and single contrast images of the esophagus demonstrate normal caliber, contour, and mucosal pattern. No evidence of stricture, mass, or ulcerations identified. Esophageal peristalsis is mildly disorganized. A small type I hiatal hernia is present. A small amount of gastroesophageal reflux is seen in the distal esophagus. Dual contrast and single contrast images of the stomach demonstrated normal contour and mucosal pattern without evidence of mass, ulceration, or other abnormality. Poor coating of the upper wall and greater curvature limits evaluation. Contrast freely passed into the gastric antrum and duodenal bulb without delay. Single and air-contrast images of the duodenal bulb demonstrate no abnormality. The duodenal sweep has a normal appearance, course, and mucosal fold appearance. No malrotation. The imaged proximal jejunum has a normal fold pattern and caliber. FLUOROSCOPY TIME: 3 minutes 17 seconds Number of Spot Images: 6 Number of Cine: 12 DOSE AREA PRODUCT: 2245 uGy-m2 (microgray-meter squared) FL/FL upper GI w air IMPRESSION: 1. Mildly disorganized esophageal peristalsis. 2. Mild gastroesophageal reflux. 3. Small type I hiatal hernia. 4. Suboptimal evaluation of the greater curvature of the stomach due to poor coating. This procedure was performed by Kennedy Alvarado PA-C, and supervised by Dr. Hoff
== END 2023-10-21 09:38 | disposition home or self-care (01) ==
LOC: HO.XRAY 09:37
PROVIDERS: PCP Internal Medicine; Visit Provider Physician Assistant Surgical
DX: E66.9 Obesity, unspecified (principal); I10 Essential (primary) hypertension
CPT/HCPCS: 74246

== ENCOUNTER → 2023-10-21 09:37 | Outpatient (BNV) | payer OTHER, SELFPAY | PROVIDERS: PCP Internal Medicine; Visit Provider Physician Assistant Surgical | DX: Z01.818 Encounter for other preprocedural examination (principal); E66.9 Obesity, unspecified | CPT/HCPCS: 74246 ==

== ENCOUNTER 2023-10-27 07:52 | Outpatient (AMB) | payer OTHER, SELFPAY ==
--- NOTE | 2023-10-27 10:01 | MHC.OFFVISWM ---
VS Expanded 10/27/23 10:17 Height 5 ft 4 in Weight 198 lb 4 oz BMI 34.0 Body Fat % 42.4 Body Fat Mass 84.1 Fat Free Mass 114.2 Visceral Fat Rating 15 Body Water % 39.5 Body Water Mass 78.3 Basal Metabolic Rate/Score 1,503 Intake Visit Reasons: TV Follow Up [facility]/[place] 1ST Allergies amoxicillin Allergy (Mild, Uncoded 10/27/23 10:02) swelling Medication List - Last Reconciled 10/27/23 by Jan David MD cholecalciferol (vitamin D3) 125 mcg PO DAILY 90 days cyanocobalamin (vitamin B-12) 500 mcg PO DAILY duloxetine 120 mg PO DAILY metoprolol succinate ER 50 mg PO DAILY valsartan-hydrochlorothiazide 320-25 mg 1 tab PO DAILY HPI HPI TV Follow Up [facility] 1ST: Details: Start time: 10.00am, End time: 10.30am ?I spent 25 minutes speaking with the patient on the phone plus an additional 5 minutes reviewing and updating records for a total of 30 minutes HPI Comments Details: Overall weight loss: 16.6lbs, or 7.72% TBWL First shake (1.5 scoops in 12 oz unsweetened almond milk) at 730am-930am, Second shake (1 scoop in 10 oz of unsweetened almond milk) at 1030am-1230pm 2 Celebrate protein bars (Celebrate bars at [facility] gift shop, First bar at 130pm-330pm. Dinner at 530pm (8 forks of protein and 8 forks of salad/vegetables). Meal to include lean meat (beef, fish, pork, turkey, chicken), cooked vegetables or a salad with olive oil and/or fruits (berries, pears, apples, kiwi). Avoid salt, breads, potatoes, rice, pasta, desserts. Half protein bar at 730pm-930pm. Exercise: walking outside x5/week [facility] Medical History (Updated 10/27/23 @ 10:04 by Jan David MD) Hyperlipidemia Fibromyalgia Surgical History Hx of bladder endoscopy Hx of colonoscopy Family History Paternal Aunt Breast cancer Stomach cancer Father Throat cancer Social History Alcohol intake: current Alcohol intake frequency: holidays/special occasions only Alcohol type: wine and hard liquor Patient Tobacco Use Status: Never used Tobacco Telehealth Telehealth Telehealth Platform: Telephone Location of provider rendering services: practice address Location of patient: address on file Patient Identification confirmed using: Name, : Yes Telehealth method: voice only Patient verbally consented to treatment: Yes Patient verbally consented to billing insurance company: Yes Patient informed of any privacy concerns related to visit: Yes Minutes spent on Phone/Video with Pt.: 30 Assessment & Plan Assessment & Plan (1) Obesity (BMI 30-39.9): Code(s): E66.9 - Obesity, unspecified Category: Medical Plan: 1. Plan for lap sleeve gastrectomy including upper GI endoscopy. All tests has been completed and reviewed and the patient is cleared for the surgery. ?If diaphragmatic or ventral hernias are present at time of surgery, these will be repaired laparoscopically as well. Risks and complications were discussed in detail including possible conversion to an open procedure, anastomotic leak, bleeding requiring transfusion, small bowel obstruction, , DVT and pulmonary embolism, cardiac, or pulmonary complications, as intermediate accountant complications such as anastomotic ulcer, insufficient weight loss and vitamin deficiencies. I emphasized the importance of close follow-up, adherence to instructions and good communication. So far she has proven to be an excellent communicator and very compliant with all our directions accomplishing a great weight loss. I believe that she is an excellent candidate and she is ready. 2. The patient participated in a structured preoperative lifestyle intervention program supervised by a physician the 2 months preceding the surgical procedure. The lifestyle intervention included a structured nutritional plan with a specific daily protein intake goal, an exercise plan with a 2000 calorie burn weekly goal, weekly behavior modification guidance and completion of eight 1-hour online nutritional classes and passing successfully the corresponding quizzes. Adherence to preoperative care plan was demonstrated by completing an extensive preoperative work-up. Program participation was demonstrated by completing 3 visits with our medical team and by sharing weekly weight measurements weekly for 2 consecutive months via an approved body composition scale. Compliance to the lifestyle intervention was demonstrated by achieving a 16.6lbs weight-loss or 7.72% total body weight loss (TBWL). No medications were used to achieve this weight loss. In our published experience an over 7% preoperative TBWL, achieved by meeting the diet and exercise goals of our program improves surgical outcomes, reduces the potential for surgical complications, and predicts a statistically significant higher weight loss up to 6 years postoperatively. 3. Continue same nutritional plan of one Celebrate Rebuild shake (1.5 scoops in almond milk), another Celebrate shake with 1 scoop in almond milk, 1.5 Celebrate protein bars and one meal (8 forks of protein and 8 forks of salad or vegetables) 4. Continue walking outside and track the calories of the walks 5. The best choice would be to purchase a stationary bike, elliptical or treadmill at home that can track calories. Let me know if you do so I can give you an exercise plan. 6. Continue to send me weight measurements weekly on Mondays
[2023-10-27 10:17] VITALS: BMI 34.0
== END 2023-10-27 11:00 | disposition home or self-care (01) ==
LOC: HO.HBS 07:52
PROVIDERS: PCP Internal Medicine; Visit Provider Surgery
DX: E66.9 Obesity, unspecified (principal); Z68.34 Body mass index [BMI] 34.0-34.9, adult
CPT/HCPCS: 99443

== ENCOUNTER → 2023-10-27 07:52 | Outpatient (BNVA) | payer OTHER, SELFPAY | PROVIDERS: PCP Internal Medicine; Visit Provider Surgery ==

== ENCOUNTER → 2023-11-25 08:14 | Outpatient (REF) | payer OTHER, SELFPAY ==
--- NOTE | 2023-11-25 08:18 | CA_ITS ---
Acquisition Time: 2023-11-25 09:15:35 Total Exercise Time: 00:05:40 Test Indications: Abnormal ECG Medications: METOPROLOL DULOXETINE Protocol: JIMMIE Max HR: 160 BPM 95% of Pred: 168 BPM Max BP: 172/084 mmHG Max Work Load: 7.0 METS Exercise stress test exercise 5 min 40 sec of Jimmie protocol achieving 95% MPHR and 7 METS, without anginal symptoms, without arrhythmias, with normototensive resposne to exercise, with downsloping leads 2 3, aVF, V5-V6. noted in limb lead placement. Test reviewed with Dr. Telma Chen present with stress placement. Resolved in limb lead placement. Then downsloping noted in recovery with limb lead placement. Reccomend stress echocardiogram for further assessment. Referred By: Jan David Overread By: Vicky Hoff
--- NOTE | 2023-11-25 08:18 | CA_ITS ---
Transthoracic Echocardiogram Patient (Last, First, Middle): Peggy Mandujano, Gender: Female Date of : 1970 Age: 53 Procedure Date: 11/25/2023 Procedure Type: Transthoracic Echocardiogram Location: OP Height: 162.56 cm Weight: 89.36 kg BSA: 1.94 m2 Heart Rate: bpm BP: 124 / 88 mmHg Labor Economist: GHANSHYAM Referring MD: Jan David MD Hydrographic Surveyor: Otis Hollis MD Symptoms: R94.31 - Abnormal electrocardiogram [ECG] [EKG] Study Quality: Fair, contrast ECG Rhythm: Sinus Conclusions: - 1. Low normal LVEF of 50-55% 2. Normal cardiac valvular Doppler 3. Normal RV systolic pressure 4. No gross pericardial effusion Findings Procedure Information Contrast agent, definity, is being given per protocol without apparent complications. Left Ventricle Normal left ventricular cavity size. There is normal left ventricular wall thickness. The left ventricular systolic function is low normal. The visually estimated ejection fraction is between 50-55%. Spectral Doppler is indicative of an impaired relaxation filling pattern. E/E prime ratio is between 8 and 15 consistent with indeterminate filling pressures. Right Ventricle Normal right ventricular cavity size and systolic function. Atria The left atrium is normal in size. There is lipomatous hypertrophy of the interatrial septum. Interatrial shunt cannot be excluded. The right atrium was not well visualized. Aortic Valve The aortic valve structure and function is likely normal. There is no aortic valve stenosis. There is no aortic valve regurgitation. Mitral Valve Likely normal mitral valve structure and function. There is trace mitral valve regurgitation. There is no mitral valve stenosis. Pulmonic Valve The pulmonic valve was not well visualized. Tricuspid Valve Likely normal tricuspid valve structure and function. There is trace tricuspid valve regurgitation. The right ventricular systolic pressure is normal. The right ventricular systolic pressure is 13 mmHg. Normal right atrial pressure. There is no evidence of pulmonary hypertension. Great Vessels The pulmonary artery was not well visualized. There is no dilatation of the ascending aorta measuring 3.20 cm. Venous The inferior vena cava is normal in size and collapses greater than 50% with inspiration. Pericardium/Pleural There is no evidence of pericardial effusion. Prior Study Comparison No prior study available for comparison. Measurements 2D Linear Measurements RVIDd: 2.84 IVSd: 0.91 0.6-0.9/0.6-1.0 cm LVIDd: 4.58 3.9-5.3/4.2-5.9 cm LVIDs: 2.82 2.0-3.6 cm LVPWd: 0.88 0.7-1.1 cm LA Diam: 3.30 2.7-3.8/3.0-4.0 cm LVOT Diam: 2.00 3.0+(-)1.3 cm 2D Volumes LA ESV A/L: 18.20 22-52/18-58 ML/M2 RA ESV A/L: 10.10 19-21 ML/M2 2D Systolic Function EF Teich: 68.70 >55% EF 4C: 49.20 >55% EF 2C: 53.90 >55% EF BiP: 51.00 >55% Mitral Valve MV Pk E: 0.49 MV PK A: 0.57 MV Decel Time: 172.00 E/A: 0.90 E'Lateral: 8.16 E'Medial: 5.98 E/E' Med: 8.20 E/E' Lat: 6.00 PHT: 50.00 MVA: 4.40 Decel Warrick: 2.86 Aortic Valve AoV Pk Adán: 1.09 AoV Mn Adán: 0.74 AoV VTI: 0.20 AoV Pk Grad: 5.00 Aov Mn Grad: 3.00 DARLYN Cont.VTI: 2.18 LVOT LVOT Pk Adán: 0.75 LVOT Mn Adán: 0.49 LVOT VTI: 0.14 LVOT Pk Grad: 2.00 LVOT Mn Grad: 1.00 LVOT Diam: 2.00 Diastolic Function MV Pk E: 0.49 MV Pk A: 0.57 E/A: 0.90 E'Medial: 5.98 E/E' Med: 8.20 E' Laterial: 8.16 E/E' Lat: 6.00 IVC Diam Insp: 0.54 IVC Diam Exp: 1.30 Right Ventricle TAPSE (mm): 20.40 TVS' Adán: 10.60 Tricuspid Valve TR Pk Adán: 156.00 TR Pk Grad: 10.00 RA Press: 3.00 RVSP: 13.00 IVC Diam Exp: 1.30 IVC Diam Insp: 0.54 Great Vessels Aorta Sinus of Valsalva: 3.10 2.0-3.[address] [place]: 2.11 1.7-3.4 cm Ao Asc: 3.20 2.1-3.4 cm Updated in Other Vendor System with Status of Final Otis Hollis MD electronically signed on 11/25/2023 5:31:12 PM with status of Final
== END ==
LOC: HO.CARD 08:14
PROVIDERS: PCP Internal Medicine; Visit Provider Surgery
DX: R94.31 Abnormal electrocardiogram [ECG] [EKG] (principal)
CPT/HCPCS: 93017; 93306; Q9957

== ENCOUNTER → 2023-11-25 08:18 | Outpatient (BNV) | payer OTHER, SELFPAY | PROVIDERS: PCP Internal Medicine; Visit Provider Nurse Practitioner | DX: R94.31 Abnormal electrocardiogram [ECG] [EKG] (principal); R93.1 Abnormal findings on diagnostic imaging of heart and coronary circulation | CPT/HCPCS: 93016; 93018; 93320; 93325; 93350; 93352 ==

== ENCOUNTER → 2023-12-23 10:59 | Outpatient (REF) | payer OTHER, SELFPAY ==
--- NOTE | 2023-12-23 11:02 | CA_ITS ---
Acquisition Time: 2023-12-23 11:18:41 Total Exercise Time: 00:06:45 Test Indications: ABN EKG, ABN ETT Medications: SEE H Protocol: KAVITA Max HR: 166 BPM 98% of Pred: 168 BPM Max BP: 154/068 mmHG Max Work Load: 8.1 METS Exercise stress test exercise 6 min 45 sec of Kavita protocol achieving 98% MPHR, without anginal symptoms, without arrhythmias, with brisk HR response and normotensive response to exercise, with downsloping in leads 2, 3, aVF, leads V3 - V6. Echo images obtained by [employer] at rest and immediately post peak exercise. Definity contrast used. Test reviewed with Dr. Castillo. Referred By: Jan David Overread By: Vicky Hoff
== END ==
LOC: HO.CARD 10:59
PROVIDERS: PCP Internal Medicine; Visit Provider Surgery
DX: R94.39 Abnormal result of other cardiovascular function study (principal)
CPT/HCPCS: 93350; Q9957

== ENCOUNTER → 2023-12-23 11:02 | Outpatient (BNV) | payer OTHER, SELFPAY | PROVIDERS: PCP Internal Medicine; Visit Provider Nurse Practitioner | DX: R94.31 Abnormal electrocardiogram [ECG] [EKG] (principal) | CPT/HCPCS: 93016; 93018; 93350; 93352 ==

== ENCOUNTER 2024-03-08 08:21 | Outpatient (AMB) | payer OTHER, SELFPAY ==
--- NOTE | 2024-03-08 09:42 | A.OFFVIS_ITS ---
VS Expanded 03/08/24 10:07 Height 5 ft 4 in Weight 186 lb 8 oz BMI 32.0 Body Fat % 39.4 Body Fat Mass 73.5 Fat Free Mass 113.2 Visceral Fat Rating 13 Body Water % 41.6 Body Water Mass 77.7 Basal Metabolic Rate/Score 1,467 Intake Visit Reasons: TV Pre Op LSG 03/30/24 Allergies amoxicillin Allergy (Mild, Uncoded 03/08/24 09:42) swelling Medication List - Last Reconciled 03/08/24 by Jan David MD cholecalciferol (vitamin D3) 125 mcg PO DAILY 90 days cyanocobalamin (vitamin B-12) 500 mcg PO DAILY duloxetine 120 mg PO DAILY metoprolol succinate ER 50 mg PO DAILY ondansetron 4 mg PO Q12H pantoprazole 40 mg PO DAILY polyethylene glycol 3350 17 grams PO DAILY sucralfate 10 mL PO BID valsartan-hydrochlorothiazide 320-25 mg 1 tab PO DAILY HPI HPI TV Pre Op LSG 03/30/24: Details: Start time: 9.40am, End time: 10.20am ?I spent 35 minutes speaking with the patient on the phone plus an additional 5 minutes reviewing and updating records for a total of 40 minutes HPI Comments Details: Overall weight loss: 27lbs, or 12.5% Is doing 2 Celebrate Rebuild shakes (1 scoop in 8oz almond milk), 1.5-2 Celebrate protein bars and one meal (9 forks of protein and 9 forks of salad or vegetables) Exercise: Outside bike riding 3/wk [facility] Medical History (Updated 11/25/23 @ 18:44 by Jan David MD) Hyperlipidemia Fibromyalgia Surgical History Hx of bladder endoscopy Hx of colonoscopy Family History Paternal Aunt Breast cancer Stomach cancer Father Throat cancer Social History Alcohol intake: current Alcohol intake frequency: holidays/special occasions only Alcohol type: wine and hard liquor Patient Tobacco Use Status: Never used Tobacco Telehealth Telehealth Telehealth Platform: Telephone Location of provider rendering services: practice address Location of patient: address on file Patient Identification confirmed using: Name, : Yes Telehealth method: voice only Patient verbally consented to treatment: Yes Patient verbally consented to billing insurance company: Yes Patient informed of any privacy concerns related to visit: Yes Minutes spent on Phone/Video with Pt.: 40 Assessment & Plan Assessment & Plan (1) Obesity (BMI 30-39.9): Code(s): E66.9 - Obesity, unspecified Category: Medical Plan: 1. Plan for lap sleeve gastrectomy including upper GI endoscopy. All tests has been completed and reviewed and the patient is cleared for the surgery. ?If diaphragmatic or ventral hernias are present at time of surgery, these will be repaired laparoscopically as well. Risks and complications were discussed in detail including possible conversion to an open procedure, anastomotic leak, bleeding requiring transfusion, small bowel obstruction, , DVT and pulmonary embolism, cardiac, or pulmonary complications, as manager long term care complications such as anastomotic ulcer, insufficient weight loss and vitamin deficiencies. I emphasized the importance of close follow-up, adherence to instructions and good communication. So far she has proven to be an excellent communicator and very compliant with all our directions accomplishing a great weight loss. I believe that she is an excellent candidate and she is ready. 2. Preop prescriptions were provided and explained the purpose of each one. Need to be purchased preop. Start Pantoprazole now as you get it from the pharmacy, 1 pill per day. Sucralfate and Zofran are for after surgery as needed. 3. Bowel prep: please do 7 packets ?of Miralax mixing each one with a an 8oz glass of water, crystal light, gatorade zero, or propel ?on 03/28/24 and the same amount on 03/29/24. The Miralax you begin with one packet at a time in 8oz water or crystal light, gatorade zero, or propel ?as early in the day as you can and you do them back to back until you finish them. Continue the protein shakes during ?the bowel prep. 4. Needs to purchase 1oz medicine cups . 5. Needs to purchase Children's liquid Tylenol for postop pain control. 6. Avoid aspirin, motrin, Advil, Aleve, Ibuprofen, Naproxyn. Tylenol is OK. 7. She needs to purchase the Celebrate 4:1 protein shakes from the hospital's gift shop. 8. Will do basic preop blood work-up any day between Friday03/22/24 and Friday03/26/24 fasting for 12 hours and is scheduled to see the Anesthesiologist prior to the day of surgery. 9. Importance of adherence to postop folllow-up and recommendations was underscored and she understands that. 10. Stop food and bars as of Friday03/16/24 and continue with 4 Celebrate REBUILD protein shakes (ONE scoop EACH in 8oz almond milk) at 8am-10am, 11am- 1pm, 2pm-4pm, 5pm-7pm and one more Celebrate REBUILD protein shake with TWO scoops in 12oz of almond milk at 8pm-10pm 11. No soups, broths or V8 12. The patient's?medical?history has been reviewed and they are considered low risk for post op DVT and therefore DVT prophylaxis is not considered necessary. Travel after surgery was reviewed. The patient has not disclosed any travel plans during the first 30 days after surgery and they have been advised that within the first 30 days after surgery any bus, plane, train or car travel over 2 hours in duration is contraindicated due to the possibility of developing blood clots from immobility. Any travel, needs to include periods of ambulation of 10 minutes in duration every 2 hours.? Patient was instructed to discuss any plans for travel during this period with their bariatric surgeon.? 13. Measure your blood pressure every morning as of tomorrow. If your blood pressure is: Below 120/70: do not take the Metoprolol or Valsartan 121/71 to 130/80: take HALF pill of the Valsartan 131/81 to 140/90: take the Metoprolol and HALF Valsartan Over 141/91: take the Metoprolol and the whole Valsartan 14. Please take at the day of surgery the following medications: Only the blood pressure medications based on the above parameters 15. Stop any control pills and don't use them for one month after surgery 16. Absolutely no smoking or vaping, or marijuana until the surgery and for at least the first 4 weeks. Only nicotine patches are allowed. 17. Send me weight measurements on Friday03/10/24, Friday03/16/24 and 03/23/24 and then on Friday03/30/24, the day of surgery before you go to the hospital. 18. Avoid any steroids by mouth for any reason. Let me know if someone prescribes them to you 19. These instructions supersede anything else you read in the handbook, anything you watched in videos or classes or you were told by any other provider. If there is any conflict, you follow the above instructions and nothing else. Orders: Orders Comprehensive Met. Panel Today E11.9 - Type 2 diabetes mellitus without complications, E66.9 - Obesity, unspecified, E78.5 - Hyperlipidemia, unspecified, I10 - Essential (primary) hypertension Prothrombin Time INR Today E11.9 - Type 2 diabetes mellitus without complications, E66.9 - Obesity, unspecified, E78.5 - Hyperlipidemia, unspecified, I10 - Essential (primary) hypertension C Reactive Protein Today E11.9 - Type 2 diabetes mellitus without complications, E66.9 - Obesity, unspecified, E78.5 - Hyperlipidemia, unspecified, I10 - Essential (primary) hypertension Lipid Panel Today E11.9 - Type 2 diabetes mellitus without complications, E66.9 - Obesity, unspecified, E78.5 - Hyperlipidemia, unspecified, I10 - Essential (primary) hypertension Complete Blood Count Auto Diff Today E11.9 - Type 2 diabetes mellitus without complications, E66.9 - Obesity, unspecified, E78.5 - Hyperlipidemia, unspecified, I10 - Essential (primary) hypertension TSH reflex Free T4 Today E11.9 - Type 2 diabetes mellitus without complications, E66.9 - Obesity, unspecified, E78.5 - Hyperlipidemia, unspecified, I10 - Essential (primary) hypertension Type and Screen Today E11.9 - Type 2 diabetes mellitus without complications, E66.9 - Obesity, unspecified, E78.5 - Hyperlipidemia, unspecified, I10 - Essential (primary) hypertension Partial Thromboplastin Time Today E11.9 - Type 2 diabetes mellitus without complications, E66.9 - Obesity, unspecified, E78.5 - Hyperlipidemia, unspecified, I10 - Essential (primary) hypertension Hemoglobin A1c Today E11.9 - Type 2 diabetes mellitus without complications, E66.9 - Obesity, unspecified, E78.5 - Hyperlipidemia, unspecified, I10 - Essential (primary) hypertension Insulin Today E11.9 - Type 2 diabetes mellitus without complications, E66.9 - Obesity, unspecified, E78.5 - Hyperlipidemia, unspecified, I10 - Essential (primary) hypertension Medications: New pantoprazole 40 mg PO DAILY 90 tabs 0RF K21.9 - Gastro-esophageal reflux disease without esophagitis sucralfate 10 mL PO BID 600 mL 2RF K21.9 - Gastro-esophageal reflux disease without esophagitis ondansetron Only take one every 12 hours as needed if you have nausea 4 mg PO Q12H 20 tabs 0RF nausea and vomiting R11.0 - Nausea polyethylene glycol 3350 Mix each measuring cup with 8oz of water, Crystal light, or Gatorade zero, or Propel and do 7 measuring cups on 03/28/24 and another 7 measuring cups on 03/29/24 17 grams PO DAILY 238 grams 0RF Z01.818 - Encounter for other preprocedural examination
[2024-03-08 10:07] VITALS: BMI 32.0
== END 2024-03-08 10:20 | disposition home or self-care (01) ==
LOC: HO.HBS 08:21
PROVIDERS: PCP Internal Medicine; Visit Provider Surgery
DX: E66.9 Obesity, unspecified (principal); Z68.32 Body mass index [BMI] 32.0-32.9, adult
CPT/HCPCS: 99499

== ENCOUNTER → 2024-03-08 08:21 | Outpatient (BNVA) | payer OTHER, SELFPAY | PROVIDERS: PCP Internal Medicine; Visit Provider Surgery ==

== ENCOUNTER → 2024-03-19 07:33 | Outpatient (BNVA) | payer OTHER, SELFPAY | PROVIDERS: PCP Internal Medicine; Visit Provider Surgery ==

== ENCOUNTER 2024-03-30 06:10 | Inpatient (IN) | payer OTHER, SELFPAY ==
[2024-03-15 11:49] VITALS: BMI 30.8
[2024-03-19 07:33] LABS: MANUAL DIFF FLAG NO
[2024-03-19 08:32] LABS: Basophils Percent Auto 0.1 % (0-2); Eosinophils Absolute Auto 0.1 X10*3/uL (0.0-0.4); Eosinophils Percent Auto 1.1 % (0-4); Hematocrit 35.6 % (37.0-47.0); Hemoglobin 11.9 g/dl (12.0-16.0); Imm Gran Abs Auto 0.04 X10*3/uL (0.00-0.03); Imm Gran Pct Auto 0.6 % (0.0-0.4); Lymphocytes Absolute Auto 1.7 X10*3/uL (1.2-4.9); Lymphocytes Percent Auto 23.2 % (20-40); Mean Corpuscular HGB Conc 33.4 g/dl (31.0-35.0); Mean Corpuscular Hemoglobin 27.5 pg (27.0-33.0); Mean Corpuscular Volume 82.2 fL (80.0-98.0); Mean Platelet Volume 9.4 fL (9.4-12.3); Monocytes Absolute Auto 0.6 X10*3/uL (0.1-1.2); Monocytes Percent Auto 8.2 % (2-11); Neutrophils Absolute Auto 4.8 x10*3/uL (2.0-8.3); Neutrophils Percent Auto 66.8 % (45-73); Platelet Count 344 X10*3/uL (160-400); Red Blood Count 4.33 X10*6/uL (4.20-5.50); Red Cell Distribution Width 14.6 % (11.0-16.0); White Blood Count 7.2 X10*3/uL (4.8-10.8)
[2024-03-19 08:53] LABS: INTERNATIONAL NORM RATIO 0.9 (0.9-1.1); Prothrombin Time 10.5 SEC (10.9-12.4)
[2024-03-19 08:55] LABS: Partial Thromboplastin Time 32.7 SEC (26.0-36.8)
[2024-03-19 09:02] LABS: Alanine Aminotransferase 59 U/L (0-31); Albumin Level 4.1 g/dL (3.5-5.0); Alkaline Phosphatase 54 U/L (39-117); Anion Gap 14 (12-20); Aspartate Amino Transferase 64 U/L (5-31); Bilirubin Total 0.4 mg/dL (0.0-1.0); Blood Urea Nitrogen 15 mg/dL (9-16); C Reactive Protein 0.93 mg/dL (< or = 0.50); Calcium 9.5 mg/dL (8.4-10.2); Carbon Dioxide 27 mmol/L (22-29); Chloride 103 mmol/L (96-108); Cholesterol 253 mg/dL (<200); Creatinine Clr Calc Pharmacy 83.8; Estimated Glomerular Filt Rate > 60; Glucose Random 97 mg/dL (60-115); HDL Cholesterol 66 mg/dL (>40); LDL Cholesterol Calculated 166 mg/dL (<100); Potassium 3.5 mmol/L (3.3-5.1); Sodium 140 mmol/L (135-145); Total Protein 7.3 g/dL (6.5-8.0); Triglycerides 108 mg/dL (<150)
[2024-03-19 09:15] LABS: Insulin 8 uU/mL (2-29); TSH reflex Free T4 1.44 uIU/mL (0.32-4.0)
[2024-03-19 09:26] LABS: Estimated Average Glucose 123 mg/dL; Hemoglobin A1C 147.6228 umol/L; Hemoglobin A1c % 5.9 % (<6.0); Total Hemoglobin (HGBA1C) 3605.6297 umol/L
--- NOTE | 2024-03-26 13:37 | P.CONAN_ITS ---
Documented by User: Angela Lira NP 03/26/24 13:39 HPI - Anesthesia Eval Consult details Narrative: 53yo F for Gastrectomy Sleeve-EGD, possible diaphragmatic hernia, possible ventral hernia, possible open PMFSH Active Problems Active Problems: All Active Problems Abnormal stress test (Acute) Abnormal EKG (Acute) Non-insulin dependent type 2 diabetes mellitus (Acute) HTN (hypertension) (Acute) Obesity (BMI 30-39.9) (Acute) Hyperlipidemia (Acute) Fibromyalgia (Acute) Past Medical History Medical History Gastric reflux GERD (gastroesophageal reflux disease) HTN (hypertension) Hyperlipidemia Fibromyalgia Family History Family History Paternal Aunt Breast cancer Stomach cancer Father Throat cancer Family history of problems with anesthesia: No Surgical History Surgical History History of esophagogastroduodenoscopy (EGD) (10/16/23) S/P excision of lipoma Hx of bladder endoscopy Hx of colonoscopy History of Problems with Anesthesia: No Social History Social History Are you a primary customer care assistant to a significant other at home: No Do you presently have visiting nurse or other home services: No Alcohol intake: current Alcohol intake frequency: holidays/special occasions only Alcohol type: wine and hard liquor Patient Tobacco Use Status: Never used Tobacco Use of substances other than those prescribed or required for medical reasons: No Have you been hit, kicked, punched, or otherwise hurt by someone within the past year? If so, by whom?: No Are you DNR?: No Advance Directives: No Advance Directives Information Provided: Yes Advance Directives on File: No Recently lost weight without trying: No Nutrition Risks: No Nutritional Risk Patient : No FDLMP: 03/03/2024 : No Poor oral hygiene: No Meds Allergies Allergy/AdvReac Type Severity Reaction Status Date / Time amoxicillin Allergy Mild Facial Uncoded 03/30/24 07:17 Swelling Home Medications ?Medication ?Instructions ?Recorded ?Confirmed ?Last Taken ?Type duloxetine 60 mg capsule,delayed 120 mg PO DAILY 09/09/23 03/15/24 10/14/23 History release metoprolol succinate 50 mg 50 mg PO DAILY 09/09/23 03/15/24 10/14/23 History tablet,extended release 24 hr valsartan 320 1 tab PO DAILY 09/09/23 03/15/24 03/30/24 History mg-hydrochlorothiazide 25 mg tablet pantoprazole 40 mg tablet,delayed 40 mg PO DAILY@0630 03/30/24 03/30/24 Unknown History release Exam Height,Weight and Vital Signs: Height 5 ft 5 in Weight 83.915 kg Pertinent Lab Results Pertinent Lab Results: Laboratory Tests 03/19/24 03/19/24 07:23 07:31 WBC 7.2 RBC 4.33 Hgb 11.9 L Hct 35.6 L MCV 82.2 MCH 27.5 MCHC 33.4 RDW 14.6 Plt Count 344 MPV 9.4 Immature Gran % (Auto) 0.6 H Neut % (Auto) 66.8 Lymph % (Auto) 23.2 [place] % (Auto) 8.2 Eos % (Auto) 1.1 Baso % (Auto) 0.1 Lymph # (Auto) 1.7 [place] # (Auto) 0.6 Eos # (Auto) 0.1 Baso # (Auto) 0.0 Abs Immat Gran (auto) 0.04 H Absolute Neuts (auto) 4.8 Absolute Nucleated RBC 0.000 Nucleated RBC % (auto) 0.0 PT 10.5 L INR 0.9 APTT 32.7 Sodium 140 Potassium 3.5 Chloride 103 Carbon Dioxide 27 Anion Gap 14 BUN 15 Creatinine 0.84 Estim Creat Clear Calc 83.8 Estimated GFR > 60 Random Glucose 97 Estimat Average Glucose 123 Hemoglobin A1c % 5.9 Insulin Level 8 Calcium 9.5 Total Bilirubin 0.4 AST 64 H ALT 59 H Alkaline Phosphatase 54 C-Reactive Protein 0.93 H Total Protein 7.3 Albumin 4.1 Triglycerides 108 Cholesterol 253 H LDL Cholesterol, Calc 166 H HDL Cholesterol 66 TSH 1.44 Blood Type O Positive Antibody Screen NEGATIVE Narrative Narrative: EKG 09/2023 Vent. Rate : 098 BPM Atrial Rate : 098 BPM P-R Int : 152 ms QRS Dur : 084 ms QT Int : 362 ms P-R-T Axes : 059 016 -07 degrees QTc Int : 462 ms Normal sinus rhythm Nonspecific ST and T wave abnormality Abnormal ECG No previous ECGs available ECHO 11/2023 Conclusions: - 1. Low normal LVEF of 50-55% 2. Normal cardiac valvular Doppler 3. Normal RV systolic pressure 4. No gross pericardial effusion Stress ECHO 12/2023 Protocol: JIMMIE Max HR: 166 BPM 98% of Pred: 168 BPM Max BP: 154/068 mmHG Max Work Load: 8.1 METS Exercise stress test exercise 6 min 45 sec of Jimmie protocol achieving 98% MPHR, without anginal symptoms, without arrhythmias, with brisk HR response and normotensive response to exercise, with downsloping in leads 2, 3, aVF, leads V3 - V6. Echo images obtained by [employer] at rest and immediately post peak exercise. Definity contrast used. Test reviewed with Dr. Castillo. Exercise stress echocardiogram was reviewed. At rest, there is low normal LVEF. With peak exercise, there is appropriate augmentation of wall thickening and contractility. There is normal decrease in end-systolic volumes. There is no evidence of exercise induced diastolic dysfunction or pulmonary hypertension. Overall, likely normal study. EKG changes could be false positive. Assessment and Plan Assessment Anesthesia Assessment: Chart Reviewed Final Anesthetic Review Family History of Problems with Anesthesia: No History of Problems with Anesthesia: No Documented by User: Merlene Trujillo MD 03/30/24 08:28 [facility] Past Medical History Medical History Gastric reflux GERD (gastroesophageal reflux disease) HTN (hypertension) Hyperlipidemia Fibromyalgia Family History Family History Paternal Aunt Breast cancer Stomach cancer Father Throat cancer Surgical History Surgical History History of esophagogastroduodenoscopy (EGD) (10/16/23) S/P excision of lipoma Hx of bladder endoscopy Hx of colonoscopy Social History Social History Are you a primary customer care assistant to a significant other at home: No Do you presently have visiting nurse or other home services: No Alcohol intake: current Alcohol intake frequency: holidays/special occasions only Alcohol type: wine and hard liquor Patient Tobacco Use Status: Never used Tobacco Use of substances other than those prescribed or required for medical reasons: No Have you been hit, kicked, punched, or otherwise hurt by someone within the past year? If so, by whom?: No Are you DNR?: No Advance Directives: No Advance Directives Information Provided: Yes Advance Directives on File: No Recently lost weight without trying: No Nutrition Risks: No Nutritional Risk Patient : No FDLMP: 03/03/2024 : No Poor oral hygiene: No Meds Allergies Allergy/AdvReac Type Severity Reaction Status Date / Time amoxicillin Allergy Mild Facial Uncoded 03/30/24 07:17 Swelling Home Medications ?Medication ?Instructions ?Recorded ?Confirmed ?Last Taken ?Type duloxetine 60 mg capsule,delayed 120 mg PO DAILY 09/09/23 03/15/24 10/14/23 History release metoprolol succinate 50 mg 50 mg PO DAILY 09/09/23 03/15/24 10/14/23 History tablet,extended release 24 hr valsartan 320 1 tab PO DAILY 09/09/23 03/15/24 03/30/24 History mg-hydrochlorothiazide 25 mg tablet pantoprazole 40 mg tablet,delayed 40 mg PO DAILY@0630 03/30/24 03/30/24 Unknown History release Exam Airway Mallampati Class: II TM Dist: >3cm Neck ROM: Full Heart: rrr Assessment and Plan Assessment Anesthesia Assessment: Anesthesia Plan Discussed Final Anesthetic Review NPO: Yes ASA Class: III Final Preanesthetic Review: No Changes in Pt Med Stat, Meds/Allgs Chart Reviewed, Consent Obtained/Reviewed and Anes Risks/Benef Reviewed Patient Risk: Intermediate Procedure Risk: Intermediate Anesthetic Plan Anesthetic Plan: GA Disposition: Standard PACU
[2024-03-30] VITALS (17 sets, daily range): BP systolic 124–154; BP diastolic 60–79; PULSE 91–120; RESP 12–23; TEMP 36–36.6; O2SAT 95–100; BMI 30.6
[2024-03-30] MEDS: Lactated Ringers 1,000 ML 999 ML IV (06:25)
[2024-03-30] MEDS: Lactated Ringers 1,000 ML 100 ML IVCONT ×3 (06:25→19:36)
[2024-03-30] MEDS: Aprepitant 32 MG/4.4 ML VIAL IVPUSH (06:46)
[2024-03-30 07:02] LABS: UPreg QC Valid YES; Urine Pregnancy NEGATIVE (NEGATIVE)
--- NOTE | 2024-03-30 07:24 | PHA.MEDREC ---
Pharmacy Consult ? Medication Reconciliation Pharmacy has completed the medication reconciliation. Reviewed med rec done by nursing
--- NOTE | 2024-03-30 07:27 | MHC.SHP ---
Pre-Procedural Eval Section A - 24 Hr Update-Section A only Date of Service: 03/30/24 The patient is an INPATIENT: Yes The patient has been examined within 24 hours of the surgical procedure. The History & Physical has been completed within 30 days and I have reviewed it.: Yes Section B - Complete if H&P > 30 days Chief Complaint: Obesity Relevant Family History (Specify if Yes): No Relevant Social History: None Present Medications: None Medical History: No relevant PMH History of Previous Operations: No relevant previous surgery Allergies: Allergies Allergy/AdvReac Type Severity Reaction Status Date / Time amoxicillin Allergy Mild Facial Uncoded 03/30/24 07:17 Swelling Review of Systems Sugical H&P ROS: Negative: Constitution, Cardiovascular, Respiratory, Neurological, Psychiatric, Hem-Onc, Allergic/Immunologic, Gastrointestinal, Genitourinary, Musculoskeletal, Integumentary, Endocrine and Eyes/Ears/Nose/Throat Exam Surgical H&P Exam: Normal: HEENT, Normal: Heart, Normal: Lungs, Normal: Extremities, Normal: Abdomen, Normal: Skin and Normal: Neurological Plan Diagnosis/Plan: Unchanged I have reviewed the history and physical and performed a pertinent physical examination on my patient. No changes have occurred unless specified. Time Spent With Patient Time: Total time managing care of this patient today ____ minutes.
--- NOTE | 2024-03-30 08:01 | P.BOP_ITS ---
Brief Operative Note Date of Service: 03/30/24 Pre-op diagnosis: Obesity with comorbidities (see below) Post-op diagnosis: same Procedure: INITIAL PATIENT BMI ON PRESENTATION AT OUR OFFICE: 36 kg/m2 LAST BMI BEFORE SURGERY: 30.7 kg/m2 COMORBIDITIES: non-insulin dependent diabetes, hypertension, fibromyalgia, hyperlipidemia, GERD, liver steatosis ?The patient presented to the Weight Management Program with significant obesity that was negatively impacting the patient's comorbidities as listed above.? The program is a phased program with a special focus on preoperative medical weight management to promote substantial weight loss and prepare the patients for the second phase of the program: bariatric surgery. The patient participated in an intensive weekly lifestyle ?intervention and exercise program during which the patient ?has lost between the initial office visit and the last preoperative visit 30.4lbs, or 14.14% of initial actual body weight. It was deemed appropriate for the patient to now have bariatric surgery. In light of the current Covid-19 pandemic and the well documented strong association of obesity and increased risk of worse outcomes if infected with Covid-19 (REFERENCES: https://pubmed.ncbi.nlm.nih.gov/97877342/ ,? https://pubmed.ncbi.nlm.nih.gov/98177938/ ), any delay in undergoing bariatric surgery may lead to the patient's worsening health condition and increased?risk of more severe Covid-19 disease if infected. In addition a recent?study from [facility] published in [employer] on 06/18/2021 ([email or web address]) found that, among patients with obesity, substantial weight loss achieved with surgery was associated with improved outcomes of COVID-19 infection. The findings suggest that obesity can be a modifiable risk factor for the severity of COVID-19 infection. In addition, the patient met the BMI-criteria for bariatric surgery based on the BMI on initial presentation. The patient should not be penalized for achieving such weight loss because ?it is not sustainable long-term without surgical intervention and it was achieved in preparation for bariatric surgery ?under my direction and based on my published research ([email or web address]).[email or web address] and? [email or web address].soard.org/article/[email or web address](48)80808-X/pdf ) ?that a 10% preoperative weight loss improves long-term weight loss after surgery and reduces perioperative complications.? Insurance carriers such as [facility] have endorsed my recommendations ?and have included in their policies criteria to include a 10% preoperative weight loss requirement. PROCEDURE: Esophago-gastroscopy, laparoscopic sleeve gastrectomy and laparoscopic gastropexy INDICATIONS: This is a 53 year-old female who was electively scheduled for laparoscopic, possibly open sleeve gastrectomy. The risks and complications of the procedure were discussed with the patient in advance, particularly the possibility of ; pulmonary embolism; staple line leak; bleeding; GERD; cardiac, pulmonary, or renal complications; as well as long-term problems such as insufficient weight loss, vitamin deficiency, strictures, or ulcers. The patient understood all the risks, and was in agreement to proceed with surgery. DESCRIPTION OF PROCEDURE: After informed consent was obtained from the patient, the patient was given preoperative antibiotics, and was transferred to the operating room. After successful induction of general anesthesia, pneumatic compression devices were placed on both lower extremities. An upper endoscopy was performed next. The oropharynx and esophagus appeared to be within normal limits. There was no significant diaphragmatic hernia present. The stomach was entered. Then after all fluid and air were suctioned and the stomach was fully decompressed, the scope was withdrawn and secured in the mid esophagus. The patient was then prepped and draped in the usual sterile manner, and abdominal access was established at the right upper quadrant with the Sergio technique. A 12 mm blunt port was inserted, and the abdomen was insufflated with CO2 to a pressure of 15 mmHg. Under direct visualization, additional ports were placed, specifically two 5 mm Versi-step ports to the left upper quadrant, and a 5 mm Versi-Step port to the right upper quadrant. 1% lidocaine plain was used to infiltrate all port sites as well as all fascia defects. Following that, the patient was placed in a steep reverse Trendelenburg position. An additional 5 mm port was placed to the right flank for the Mediflex retractor that was used to retract the left lobe of the liver. The gastro-esophageal fat pad was opened with the ultrasonic device (Thbradenbechriss, Olympus) and the anterior esophagus and hiatus were exposed. The angle of His was opened with the ultrasonic device the fundus of the stomach from any diaphragmatic and splenic attachments. I then opened the gastrocolic ligament between the transverse colon and the greater curvature of the stomach with the ultrasonic device to enter the lesser sac and facilitate the ligation of the short gastric vessels. I started at a mid-point along the greater curvature and using the Thunderbeat, all short gastric vessels were divided all the way to the angle of His until the left yola was completely dissected at its entirety. I then divided the gastro-colic ligament distally to a distance of about 3-4 cm proximal to the pylorus. ? The stomach was then divided transversely with one Endo ANGEL-45 purple, one ANGEL- 45 orange load and three ANGEL-60 articulating purple loads using the Accentium WebIA stapler and Wunsch-Brautkleid and [employer] loads. Every effort was made that the gastric sleeve had a tubular shape and an even caliber throughout. Once the sleeve resection was completed, the staple line of the gastric sleeve was reinforced with Hemoclips. The resected stomach was retrieved without difficulty from the Sergio port. A gastropexy was then performed in order to prevent postoperative GERD and partial gastric volvulus. Several interrupted 2.0 Surgidac sutures were placed between the sleeve's staple line and the previously divided greater omentum and gastro-colic ligament using the Endo-Stitch device. ?An upper endoscopy was performed. There was no narrowing at the GE junction. The scope was easily advanced all the way to the pylorus which was clearly visualized. There was no narrowing anywhere and the sleeve's caliber was even throughout. The sleeve's staple line was inspected and there was no evidence of ischemia, bleeding or dehiscence. At that point the gastroscope was withdrawn from the patient?s mouth while we were decompressing the bowel and the stomach from any remaining air. I looked into the lesser sac to see how the sleeve was situating and it was situating well. There was no bleeding from the staple line, spleen, or short gastric vessels. The Mediflex retractor was removed, and the undersurface of the liver was inspected and there was no bleeding. The patient was placed in supine position. I closed the fascial defect of the 12 mm port site with a figure of eight #1 Polysorb suture. Then 30cc Ropivacaine plain with 10 mg of Dexamethasone were used to infiltrate the fascial closure as well as all skin incisions. At this point, the abdomen was deflated, all ports were removed under direct vision, and no bleeding was noted from any of the port sites. The skin incisions were irrigated with saline and were closed with 4-0 absorbable monofilament sutures. Steri-Strips and OpSites were used to cover all incisions. The patient was extubated and was transferred in stable condition to the recovery room for further care. I was present and performed all peralta parts of the procedure. Marci Montoya was the assistant director. There were no residents to assist with this case. Cirilo David MD, PhD, FACS Surgeon: Jan David MD Anesthesia: GETA, local and other (TAP block) Was an Wood Floor Refinisher used for this Procedure?: No Wood Floor Refinisher: Everett Montoya Estimated blood loss (mL): 10 IV fluids (mL): 2,500 Urine output (mL): 0 (No Mojica to record output) Pathology: other (Stomach) Condition: stable Disposition: PACU
[2024-03-30] MEDS: levoFLOXacin/D5W 500 MG/100 ML PIGGYBACK 100 MG IV (08:02)
--- NOTE | 2024-03-30 08:04 | P.PNGS_ITS ---
Subjective Subjective Date of Service: 03/31/24 Interval history: Feels well. Mild incisional pain. She is tolerating phase 1 bariatric diet Physical Exam 2 Vital Signs: Vital Signs: Last Vital Signs Temp 97.2 F 03/30/24 06:38 Pulse 91 03/30/24 06:38 Resp 18 03/30/24 06:38 BP 147/79 H 03/30/24 06:38 Pulse Ox 97 03/30/24 06:38 O2 Del Method Room Air 03/30/24 06:38 BMI result Body Mass Index 30.6 GI: Inspection: Yes normal to inspection, Yes incision (dry, clean and intact) and Yes obesity Palpation (GI): Soft to palpation Extrem: Right lower extremity: normal to inspection (no calf tenderness) L eft lower extremity: normal to inspection (no calf tenderness) Objective Data Active Medications Lactated Ringer's (Lr) 1,000 mls @ 100 mls/hr IVCONT .Q10H [facility] Last Admin: 03/30/24 06:25 Dose: 100 mls/hr Documented By: ANTONIO Lactated Ringer's (Lr) 1,000 mls @ 999 mls/hr IV .Q1H1M SOREN Stop: 03/30/24 08:15 Last Admin: 03/30/24 06:25 Dose: 999 mls/hr Documented By: ANTONIO Labs 03/31/24 05:03 03/31/24 05:03 Labs: Laboratory Results - last 24 hr 03/30/24 03/30/24 06:30 06:49 Urine Test NEGATIVE Blood Type O Positive Antibody Screen NEGATIVE Procedures Date of Service Date of Service: 03/31/24 Progress Note: A&P Assessment and plan (1) Obesity (BMI 30-39.9): Status: Acute Assessment and Plan: s/p laparoscopic sleeve gastrectomy and gastropexy Doing well Will check am labs and if OK the patient will be discharged home (2) BMI 30.0-30.9,adult: Status: Acute (3) Non-insulin dependent type 2 diabetes mellitus: Status: Acute (4) HTN (hypertension): Status: Acute (5) Hyperlipidemia: Status: Acute (6) Gastric reflux: Status: Acute (7) Steatosis, liver: Status: Acute (8) S/P laparoscopic sleeve gastrectomy: Status: Acute Time Spent With Patient Time: Total time managing care of this patient today ____ minutes. Quality Stroke Does the patient have a stroke diagnosis?: No VTE Prior VTE?: No VTE Risk Level:: Surgical - moderate VTE Device Contraindication: N/A - Device Ordered VTE Drug Contraindication: Treatment Not Indicated
[2024-03-30] MEDS: Acetaminophen 1,000 MG/100 ML PIGGYBACK 400 MG IV (08:45)
--- NOTE | 2024-03-30 10:10 | P.DS_ITS ---
DS: Providers Provider Date of Service: 03/31/24 Date of admission: 03/30/24 06:10 Primary care physician: Benny Reeves MD DS: Diagnosis Discharge Diagnosis (1) Obesity (BMI 30-39.9): Status: Acute (2) BMI 30.0-30.9,adult: Status: Acute (3) Non-insulin dependent type 2 diabetes mellitus: Status: Acute (4) HTN (hypertension): Status: Acute (5) Hyperlipidemia: Status: Acute (6) Gastric reflux: Status: Acute (7) Steatosis, liver: Status: Acute DS: Summary Hospital Course Hospital Course: ADMITTING DIAGNOSIS: obesity, htn, hld, fibromyalgia ? DISCHARGE DIAGNOSIS: same, s/p laparoscopic sleeve gastrectomy ? PAST SURGICAL HISTORY: none ? PROCEDURE: upper endoscopy, laparoscopic sleeve gastrectomy ? DISCHARGE SUMMARY: ? History of Present Illness: ? The patient is a?53 year-old woman with a BMI of?36.9 kg/m2 and associated co- morbidities as described above. The patient had extensive work-up,lost?30.5 lbs preoperatively and was electively scheduled for laparoscopic, possible open sleeve gastrectomy and gastropexy. Risks and complications of the surgery were discussed with the patient in advance, particularly the possibility of , pulmonary embolism, anastomotic leak, bleeding, bowel injury, GERD, cardiac, renal or pulmonary complications. The patient understood all the risks and was in agreement with the surgical plan. ? Hospital Course: ? The patient underwent an uneventful laparoscopic sleeve gastrectomy with gastropexy on the day of admission. Postoperatively, the patient was transferred to the surgical floor. The patient received IV Acetaminophen and IV dilaudid for pain control. Patient was started on bariatric phase 1 diet POD #0. On postoperative day one, the patient was feeling well without nausea, vomiting, fevers, or tachycardia. The patient had some mild incisional pain and the abdomen was soft. ? On the morning of postoperative day one, the patient was continued on 1 ounce of water or ice every half hour. During the day, the patient did fairly well, having some incisional pain, but able to ambulate adequately and to tolerate liquids well. ? Since the patient is doing well, we decided that the patient was ready to be discharged. The patient was given instructions to follow-up with me next week and to call my office for any fever over 101, persistent abdominal pain, nausea, vomiting, GERD, symptoms of DVT such as calf tenderness, or leg swelling, or pulmonary embolism such as chest pain or shortness of breath. The patient was also instructed to drink 40-60 ounces of liquids per day using the 1-ounce cups. The patient had been given prescriptions for Tylenol for pain, Zofran prn for nausea, and pantoprazole and carafate previously. The patient was encouraged to ambulate and use the incentive spirometer. The patient was allowed to shower, but no baths, and encouraged to stay active at home. All of these instructions were given to the patient personally. All questions were answered and the patient understood all instructions, the instructions were also given to the patient in print. Time Attestation Total time managing care of this patient today: 25 mintues. Discharge Coordination Time (in mins): 25 Quality: Safe Use of Opioids Does Pt have an Active Cancer Diagnosis on the Problem List?: No Quality: Stroke Does the patient have a stroke diagnosis?: No Physical Exam Vital Signs: Vital Signs: Last Vital Signs Temp 97.2 F 03/30/24 06:38 Pulse 91 03/30/24 06:38 Resp 18 03/30/24 06:38 BP 147/79 H 03/30/24 06:38 Pulse Ox 97 03/30/24 06:38 O2 Del Method Room Air 03/30/24 06:38 BMI result Body Mass Index 30.6 DS: Data Data Completed and Pending Pending studies at discharge: Pending at discharge 03/30/24 09:42 Surgical [PTH] Routine Labs on day of discharge: Laboratory Results - last 24 hr 03/30/24 03/30/24 06:30 06:49 Urine Test NEGATIVE Blood Type O Positive Antibody Screen NEGATIVE Discharge Plan Discharge Anticipated Discharge Date/Time: 03/31/24 10:00 Patient Disposition: Home, Self-Care Discharge Diagnosis: s/p laparoscopic sleeve gastrectomy Referrals: Benny Reeves MD [Primary Care Provider] - 1 Week Discharge Medications: Continued pantoprazole 40 mg tablet,delayed release (DR/EC) 40 mg PO DAILY@0630 sucralfate 100 mg/mL suspension 10 ml PO BID Qty: 600 2RF ondansetron 4 mg tablet,disintegrating 4 mg PO Q12H Qty: 20 0RF Rx Instructions: Only take one every 12 hours as needed if you have nausea metoprolol succinate 50 mg tablet extended release 24 hr 50 mg PO DAILY duloxetine 60 mg capsule,delayed release(DR/EC) 120 mg PO DAILY Held valsartan-hydrochlorothiazide 320-25 mg tablet 1 tab PO DAILY Hold Instructions: Resume on 04/01/24. Check your blood pressure every morni ng as soon as you wake up and send it to Dr. David. Do no take the blood pressure medication if the blood pressure is below 120/70. Wait every day to hear back from Dr. David before you take the medication. Discontinued cholecalciferol (vitamin D3) 125 mcg (5,000 unit) capsule 125 mcg PO DAILY 90 Days Qty: 90 1RF cyanocobalamin (vitamin B-12) 500 mcg tablet 500 mcg PO DAILY Qty: 60 0RF Discharge Orders: Discharge Order (Routine); Ordered 03/31/24 Ordered By: Jan David Activity on Discharge: No heavy lifting Stand Alone Forms: Patient Portal Discharge page Print Language: German Care Plan Goals: weight loss Health Concerns: obesity Plan of Treatment: No tub baths, sex or returning to work until discussed at first post op appointment. No exercise, alcohol, tobacco or illegal drug use. Continue to use incentive spirometer hourly while awake. Walk in home for 5- 10 minutes every 2 hours during the first week. Follow all instructions in the bariatric handbook and call with any questions.Discharge Instructions 1. Please call your doctor or come back to the emergency room should any new symptoms arise. 2. You will receive a courtesy call from [facility] 24-48 hours after discharge. 3. Activity: abstain from alcohol, practice limited stair climbing, no bending, no driving, no exercise, no illicit substances, no lifting, no sex, no tub bath, no work. 4. Diet: continue as discussed with Dr. David. 5. Dressing Change/Wound Care: Your incision is covered by clear bandages and guaze underneath. If the area is tender, you may apply an ice pack for short intervals (no more than 20 minutes on, followed by at least 20 minutes off). Do not apply heat. Do not use creams, lotions, or topical antibiotics unless ins tructed to do so by your surgeon. These can cause infection or allergic reaction. 6. Call your doctor if: - Your temperature exceeds 101.5 F - You experience excessive pain or swelling - You have an unexpected reaction to medication - You have excessive bleeding - You experience continued vomiting/nausea - Your incision begins to separate - Your incision shows signs of infection such as increased redness, swelling, excessive pain, heat, or drainage (light blood or clear fluid is normal) 7. General instructions: No lifting greater than 5 lbs for 1 week and not more than 20lbs the next 3?weeks. No driving until seen at the office in 5-7 days after surgery. If you do not move your bowels in the next 2 days, please tell?Dr. David. Please walk around your home every hour or two to prevent blood clots from forming in your legs. You do not need to wake from sleeping to walk. Please sleep in a bed or couch to prevent kinking at the hips and knees. Please take your incentive spirometer (your lung publishing director) home with you and use it for the next few days to prevent pneumonia. You may shower, no hot tubs, baths or swimming pools.?Please follow the post op diet instructions you are?given by Dr David? and text me daily at 5-6pm for an update.?If you have any issues or concerns or questions please communicate this to him via text.? The Celebrate shakes have all of the bariatric vitamins you need if you consume these shakes. If you are drinking other protein shakes, you will need to purchase the Celebrate multivitamins and calcium that are available in the hospital gift shop on the first floor of the main hospital.??Do not take anything without first discussing with Dr David. Please make sure you are consuming at least 40 ounces of fluids per day starting the?day AFTER your discharge from the hospital. Always drink 1-2 ml per minute using the 5ml?syringe. If you drink faster you may experience?bloating,?gas pain, burping, nausea or heartburn. In that case please slow down your pace and use the syringe to?understand better the?proper?pace and volume of drinking. Do not hesitate to contact the office with any questions at . The patient's medical history has been reviewed and they are considered low risk for post op DVT and therefore DVT prophylaxis is not considered necessary. Travel after surgery was reviewed. The patient has not disclosed any travel plans during the first 30 days after surgery and they have been advised that within the first 30 days after surgery any bus, plane, train or car travel over 2 hours in duration is contraindicated due to the possibility of developing blood clots from immobility. Any travel, needs to include periods of ambulation of 10 minutes in duration every 2 hours.? The patient was instructed to discuss any plans for travel during this period with their bariatric surgeon. Assessment: stable s/p laparoscopic sleeve gastrectomy
[2024-03-30] MEDS: ondansetron HCL 4 MG/2 ML VIAL IVPUSH (10:13)
[2024-03-30] MEDS: Haloperidol Lactate 5 MG/ML VIAL 1 MG IVPUSH (10:36)
[2024-03-30 10:53] LABS: Hematocrit 33.8 % (37.0-47.0); Hemoglobin 11.2 g/dl (12.0-16.0)
[2024-03-30 11:05] LABS: Anion Gap 14 (12-20); Blood Urea Nitrogen 9 mg/dL (9-16); Calcium 8.9 mg/dL (8.4-10.2); Carbon Dioxide 23 mmol/L (22-29); Chloride 105 mmol/L (96-108); Creatinine Clr Calc Pharmacy 86.6; Estimated Glomerular Filt Rate > 60; Glucose Random 206 mg/dL (60-115); Potassium 3.5 mmol/L (3.3-5.1); Sodium 138 mmol/L (135-145)
[2024-03-30] MEDS: Metoclopramide HCl 10 MG/2 ML VIAL IVPUSH ×2 (11:34→19:32)
[2024-03-30] MEDS: Acetaminophen 1,000 MG/100 ML PIGGYBACK 16.7 MG IV ×2 (15:26→20:27)
[2024-03-30] MEDS: HYDROmorphone HCl 0.5 MG/0.5 ML SYRINGE 0.25 MG IVPUSH (19:32)
[2024-03-30] MEDS: Famotidine/PF 20 MG/2 ML VIAL IVPUSH (20:27)
[2024-03-30] MEDS: Metoprolol Tartrate 25 MG TABLET PO (22:37)
--- NOTE | 2024-03-30 22:42 | MHC.PIE ---
p; pt tachy at 2100, dr hill on phone, rechecke pulse and text result. [address] hutchison notified via stas with md not opening stas? p; 2215 vs p 115, rr 16, b/p 127/60, o2 95 ra, t 97.5. pt denies any pain, nausea, h/a, dizziness or chest pain. intake 30 ml since 7pm with total of 10 ml since arrival on unit. pt reports taking valsartan this AM, unsure of metoprolo. pt reports hot flashes due to menopause at this time. i; KEVON Montoya notified. new order metoprolo 25 mg now. increase LR to 150. e; [facility]
[2024-03-31] MEDS: Acetaminophen 1,000 MG/100 ML PIGGYBACK 16.7 MG IV (02:15)
[2024-03-31] MEDS: Lactated Ringers 1,000 ML 150 ML IVCONT (02:15)
[2024-03-31 03:43] VITALS: BP 142/68; PULSE 93; RESP 16; TEMP 36; O2SAT 98
[2024-03-31] MEDS: ondansetron HCL 4 MG/2 ML VIAL IVPUSH (05:51)
[2024-03-31 06:06] LABS: Glucose, Whole Blood 87 mg/dL (60-115)
[2024-03-31 06:56] LABS: MANUAL DIFF FLAG NO
[2024-03-31 07:01] LABS: Basophils Percent Auto 0.1 % (0-2); Hematocrit 32.8 % (37.0-47.0); Hemoglobin 10.8 g/dl (12.0-16.0); Imm Gran Pct Auto 0.7 % (0.0-0.4); Lymphocytes Absolute Auto 1.5 X10*3/uL (1.2-4.9); Mean Corpuscular HGB Conc 32.9 g/dl (31.0-35.0); Mean Corpuscular Hemoglobin 27.1 pg (27.0-33.0); Mean Corpuscular Volume 82.4 fL (80.0-98.0); Monocytes Absolute Auto 1.2 X10*3/uL (0.1-1.2); Monocytes Percent Auto 8.1 % (2-11); Neutrophils Absolute Auto 12.1 x10*3/uL (2.0-8.3); Neutrophils Percent Auto 81.1 % (45-73); Platelet Count 384 X10*3/uL (160-400); Red Blood Count 3.98 X10*6/uL (4.20-5.50); Red Cell Distribution Width 14.8 % (11.0-16.0); White Blood Count 14.9 X10*3/uL (4.8-10.8)
[2024-03-31 07:13] VITALS: BP 146/70; PULSE 87; RESP 18; TEMP 36.2; O2SAT 98
[2024-03-31 07:14] LABS: Anion Gap 11 (12-20); Blood Urea Nitrogen 7 mg/dL (9-16); Calcium 9.1 mg/dL (8.4-10.2); Carbon Dioxide 26 mmol/L (22-29); Chloride 104 mmol/L (96-108); Creatinine Clr Calc Pharmacy 96.1; Estimated Glomerular Filt Rate > 60; Glucose Random 98 mg/dL (60-115); Sodium 137 mmol/L (135-145)
[2024-03-31] MEDS: Metoprolol Succinate ER 50 MG TAB.ER.24H PO (07:20)
[2024-03-31] MEDS: Valsartan 320 MG, hydroCHLOROthiazide 25 MG PO (07:20)
[2024-03-31] MEDS: Famotidine/PF 20 MG/2 ML VIAL IVPUSH (07:20)
--- NOTE | 2024-03-31 08:35 | MHC.CM.PN ---
pt dcd home self care
--- NOTE | 2024-04-01 09:13 | HO.POSTANES ---
Post Anesthesia Evaluation Post Anesthesia Evaluation Date of Service: 03/30/24 Anesthesia: General Mental Status: Awake Pain Control: Satisfactory Nausea/Vomiting: None Hydration: Adequate Anesthesia-Related Issues: No Anes. Related Issues
== END 2024-03-31 09:25 | disposition home or self-care (01) | DRG 621 ==
LOC: HO.SSSA 10:12 → HO.S3 12:15
PROVIDERS: Anesthesiology; Physician Assistant Surgical; Admitting Provider Surgery; PCP Internal Medicine; Visit Provider Surgery
PROC: 0DB64Z3 Excision of Stomach, Percutaneous Endoscopic Approach, Vertical (ICD-10-PCS; CPT 43845; principal; 2024-03-30 07:30)
DX: E66.9 Obesity, unspecified (principal); I10 Essential (primary) hypertension; M79.7 Fibromyalgia; E78.5 Hyperlipidemia, unspecified; K21.9 Gastro-esophageal reflux disease without esophagitis; K76.0 Fatty (change of) liver, not elsewhere classified; Z68.30 Body mass index [BMI] 30.0-30.9, adult; Z79.899 Other long term (current) drug therapy
CPT/HCPCS: 36415; 80048; 80053; 80061; 81025; 82947; 83036; 83525; 84443; 85014; 85018; 85025; 85610; 85730; 86140; 86850; 86900; 86901; 88304; 88305; 88307; 88342; A4649; C9145; J0131; J1100; J1171; J1630; J1956; J2003; J2250; J2371; J2405; J2704; J2765; J2795; J3010; J7120

== ENCOUNTER → 2024-03-30 06:10 | Outpatient (BNV) | payer OTHER, SELFPAY | PROVIDERS: Admitting Provider Surgery; PCP Internal Medicine; Visit Provider Surgery | DX: E66.9 Obesity, unspecified (principal); Z68.30 Body mass index [BMI] 30.0-30.9, adult; Z98.84 Bariatric surgery status | CPT/HCPCS: 43659; 43775; 99024; 99499 ==

== ENCOUNTER 2024-04-06 10:44 | Outpatient (AMB) | payer OTHER, SELFPAY ==
--- NOTE | 2024-04-06 10:46 | A.OFFVIS_ITS ---
VS Expanded 04/06/24 11:07 BP 131/86 Blood Pressure Location Rt brachial Blood Pressure Position Sitting Pulse 126 H Pulse Source Pulse Oximeter Temp 98.1 F Temperature Source Temporal Artery Scan Pulse Oximetry 98 Oxygen Delivery Method Room Air Height 5 ft 4 in Weight 171 lb 12.8 oz BMI 29.5 Body Fat % 39.8 Body Fat Mass 68.4 Fat Free Mass 103.4 Visceral Fat Rating 9.0 Body Water % 42.7 Body Water Mass 73.4 Muscle Mass/Score 98.2 Basal Metabolic Rate/Score 1,428 Intake Visit Reasons: (OV) PO LSG 03/30/24 Allergies amoxicillin Allergy (Mild, Uncoded 03/30/24 07:17) Facial Swelling HPI Comments Details: Patient is a pleasant 53-year-old female who is 7 days post sleeve gastrectomy performed on 03/30/2024. Tolerating 3 celebrate 4 in 1 shakes with 1 scoop each in approximately 40-46 oz of fluids. She has moved her bowels and offers no complaints of pain. [facility] Medical History Gastric reflux GERD (gastroesophageal reflux disease) HTN (hypertension) Hyperlipidemia Fibromyalgia Surgical History (Updated 04/06/24 @ 10:57 by Deirdre Trejo CMA) S/P laparoscopic sleeve gastrectomy History of esophagogastroduodenoscopy (EGD) (10/16/23) S/P excision of lipoma Hx of bladder endoscopy Hx of colonoscopy Family History Paternal Aunt Breast cancer Stomach cancer Father Throat cancer Social History Household Members: Spouse Housing: House Are you a primary care nurse rn to a significant other at home: No Do you presently have visiting nurse or other home services: No Alcohol intake: current Alcohol intake frequency: holidays/special occasions only Alcohol type: wine and hard liquor Patient Tobacco Use Status: Never used Tobacco Physical Exam GI Inspection: Yes incision (Clean, dry, intact.) Assessment & Plan Assessment & Plan (1) S/P laparoscopic sleeve gastrectomy: Code(s): Z98.84 - Bariatric surgery status Category: Surgical Plan: POD 7 s/p LSG on 03/30/[address] David Weight loss prior to surgery was 30.5 pounds or 14.1 % TBWL. Original weight on 08/1923 was 215 pounds and op weight was 184.5 pounds. Be sure to text Dr David exactly 1 week after surgery your weight from your home scale so he can adjust your meal plan. Continue meal plan until f/u lamin Floyd in 2 weeks May shower, no submersion in bath for another week Continue abdominal binder with activity and exercise for the next 2 weeks. Exercise prior to surgery was elliptical and may resume No abdominal exercises for 6 weeks post operatively Will be emailed link to post op video for review Reminded of the pace of drinking, 2 mL per minute, 1 oz/15 min.
[2024-04-06 11:07] VITALS: BP 131/86; PULSE 126; TEMP 36.7; O2SAT 98; BMI 29.5
== END 2024-04-06 11:35 | disposition home or self-care (01) ==
PROVIDERS: PCP Internal Medicine; Visit Provider Physician Assistant Surgical
DX: Z98.84 Bariatric surgery status (principal)
CPT/HCPCS: 99024

== ENCOUNTER → 2024-04-06 10:44 | Outpatient (BNVA) | payer OTHER, SELFPAY | PROVIDERS: PCP Internal Medicine; Visit Provider Physician Assistant Surgical ==

== ENCOUNTER 2024-06-02 13:30 | Outpatient (AMB) | payer OTHER, SELFPAY ==
--- NOTE | 2024-06-02 10:15 | A.OFFVIS_ITS ---
VS Expanded 06/02/24 10:16 Height 5 ft 4 in Weight 156 lb 9 oz BMI 26.9 Body Fat % 31.7 Fat Free Mass 107.1 Visceral Fat Rating 9 Body Water % 46.9 Muscle Mass/Score 100.7 Basal Metabolic Rate/Score 1,421 Intake Visit Reasons: (TV) PO LSG 03/30/24 Block Cleaner Required: No Allergies amoxicillin Allergy (Mild, Uncoded 03/30/24 07:17) Facial Swelling Medication List - Last Reconciled 06/02/24 by KEVON Molina docusate sodium (Colace) 100 mg PO DAILY duloxetine 120 mg PO DAILY pantoprazole 40 mg PO DAILY@0630 sucralfate 10 mL PO BID HPI Comments Details: This?a?53?yo female who is s/p LSG without hiatal hernia repair on?03/30/2024. Presents for 2 month post op visit. Weight today is 156.9 pounds, with a BMI of 26.9. There has been a 58.1 pound weight loss,(initial weight 215 pounds) since starting the program on 09/09/23 reflecting a 27 % total body weight loss and a weight loss of 27.6 pounds since surgery (operative weight 184.5 pounds) reflecting a 14.9 % TBWL since surgery. No complaints of nausea, emesis, abdominal pain or reflux. Reports infrequent but normal bowel movements every 2- 3 days and uses stool softeners regularly. Taking patch aid transdermal Present meal plan includes: fairlife 30 gm rtd, 9-11 celebrate bar 12-2 celebrate 4 in 1, 2 scoops in 8 oz almond milk, 3-5 meal 1 egg or cymro yogurt drinking 56-64 oz water ? Exercise routine includes: treadmill, 20-30 min daily, 200 jonel [employer] gym, stairmaster, bike, elliptical 300 PFSH Medical History (Updated 04/12/24 @ 09:49 by Jan David MD) Gastric reflux GERD (gastroesophageal reflux disease) HTN (hypertension) Hyperlipidemia Fibromyalgia Surgical History (Updated 04/08/24 @ 00:01 by Kelly Ruby) S/P laparoscopic sleeve gastrectomy History of esophagogastroduodenoscopy (EGD) (10/16/23) S/P excision of lipoma Hx of bladder endoscopy Hx of colonoscopy Family History Paternal Aunt Breast cancer Stomach cancer Father Throat cancer Social History Household Members: Spouse Housing: House Are you a primary career discovery teacher to a significant other at home: No Do you presently have visiting nurse or other home services: No Alcohol intake: current Alcohol intake frequency: holidays/special occasions only Alcohol type: wine and hard liquor Patient Tobacco Use Status: Never used Tobacco Telehealth Telehealth Telehealth Platform: Telephone Location of provider rendering services: practice address Location of patient: address on file Patient Identification confirmed using: Name, : Yes Telehealth method: voice only Patient verbally consented to treatment: Yes Patient verbally consented to billing insurance company: Yes Patient informed of any privacy concerns related to visit: Yes Minutes spent on Phone/Video with Pt.: 20 Assessment & Plan Assessment & Plan (1) S/P laparoscopic sleeve gastrectomy: Code(s): Z98.84 - Bariatric surgery status Category: Medical Plan: Patient wishes to change up her meal plan. She wishes to only use 1 shake per day. We will change her meal plan accordingly: Celebrate 4 in 1, 2 scoops Celebrate protein bar Meal with 4 forks of protein and 4 of vegetables 60 oz to 70 oz of water daily Recommend exercise daily with a goal of burning 300 calories per day.
[2024-06-02 10:16] VITALS: BMI 26.9
== END 2024-06-02 14:08 | disposition home or self-care (01) ==
LOC: HO.HBS 13:54
PROVIDERS: PCP Internal Medicine; Visit Provider Physician Assistant Surgical
DX: Z98.84 Bariatric surgery status (principal)
CPT/HCPCS: 99024

== ENCOUNTER → 2024-06-02 13:30 | Outpatient (BNVA) | payer OTHER, SELFPAY | PROVIDERS: PCP Internal Medicine; Visit Provider Physician Assistant Surgical | DX: Z98.84 Bariatric surgery status (principal) ==

== ENCOUNTER 2024-07-09 14:24 | Outpatient (AMB) | payer OTHER, SELFPAY ==
[2024-07-09 09:56] VITALS: BMI 25.1
--- NOTE | 2024-07-09 09:56 | MHC.OFFVISWM ---
VS Expanded 07/09/24 09:56 Height 5 ft 4 in Weight 146 lb 1 oz BMI 25.1 Body Fat % 28.9 Fat Free Mass 103.9 Visceral Fat Rating 7 Body Water % 48.8 Muscle Mass/Score 97.6 Basal Metabolic Rate/Score 1,395 Intake Visit Reasons: (TV) PO LSG 03/30/24 Bone Process Operator Required: No Allergies amoxicillin Allergy (Mild, Uncoded 03/30/24 07:17) Facial Swelling Medication List - Last Reconciled 07/09/24 by KEVON Molina docusate sodium (Colace) 100 mg PO DAILY duloxetine 120 mg PO DAILY HPI Comments Details: This?a?53?yo female who is s/p LSG without hiatal hernia repair on?03/30/2024. Presents for 3 month post op visit. Weight today is 146.1 pounds, with a BMI of 25.1. There has been a 68.9 pound weight loss,(initial weight 215 pounds) since starting the program on 09/09/23 reflecting a 32 % total body weight loss and a weight loss of 38.4 pounds since surgery (operative weight 184.5 pounds) reflecting a 20.8 % TBWL since surgery. No complaints of nausea, emesis, abdominal pain or reflux. Reports infrequent but normal bowel movements every 2-3 days and uses stool softeners regularly. Taking celebrate mvi Present meal plan includes: Celebrate 4 in 1, 2 scoops Celebrate protein bar (misses 3 days per week) shredded chicken over salad (4 forks protein/4 forks veg) Meal with 4 forks of protein and 4 of vegetables drinking 125-150 oz water ? Exercise routine includes: [employer] gym, stairmaster, bike, elliptical 300 weights then cardio, 4 days per week [facility] Medical History (Updated 04/12/24 @ 09:49 by Jan David MD) Gastric reflux GERD (gastroesophageal reflux disease) HTN (hypertension) Hyperlipidemia Fibromyalgia Surgical History (Updated 04/08/24 @ 00:01 by Kelly Ruby) S/P laparoscopic sleeve gastrectomy History of esophagogastroduodenoscopy (EGD) (10/16/23) S/P excision of lipoma Hx of bladder endoscopy Hx of colonoscopy Family History Paternal Aunt Breast cancer Stomach cancer Father Throat cancer Social History Household Members: Spouse Housing: House Are you a primary day care home provider to a significant other at home: No Do you presently have visiting nurse or other home services: No Alcohol intake: current Alcohol intake frequency: holidays/special occasions only Alcohol type: wine and hard liquor Patient Tobacco Use Status: Never used Tobacco Telehealth Telehealth Telehealth Platform: Telephone Location of provider rendering services: practice address Location of patient: address on file Patient Identification confirmed using: Name, : Yes Telehealth method: voice only Patient verbally consented to treatment: Yes Patient verbally consented to billing insurance company: Yes Patient informed of any privacy concerns related to visit: Yes Minutes spent on Phone/Video with Pt.: 12 Assessment & Plan Assessment & Plan (1) S/P laparoscopic sleeve gastrectomy: Code(s): Z98.84 - Bariatric surgery status Category: Surgical Plan: Celebrate 4 in 1, 2 scoops shredded chicken over salad (4 forks protein/4 forks veg) Meal with 6 forks of protein and 6 of vegetables decrease water to 75-100 oz max increase exercise to 450 jonel each session rtc 1 month
== END 2024-07-09 14:34 | disposition home or self-care (01) ==
LOC: HO.HBS 14:24
PROVIDERS: PCP Internal Medicine; Visit Provider Physician Assistant Surgical
DX: Z71.3 Dietary counseling and surveillance (principal); Z98.84 Bariatric surgery status
CPT/HCPCS: 98012

== ENCOUNTER → 2024-07-09 14:24 | Outpatient (BNVA) | payer OTHER, SELFPAY | PROVIDERS: PCP Internal Medicine; Visit Provider Physician Assistant Surgical ==

== ENCOUNTER 2024-08-20 10:29 | Outpatient (AMB) | payer OTHER, SELFPAY ==
--- NOTE | 2024-08-20 08:46 | MHC.OFFVISWM ---
VS Expanded 08/20/24 08:47 Height 5 ft 4 in Weight 138 lb 8 oz BMI 23.8 Body Fat % 27 Fat Free Mass 101.3 Visceral Fat Rating 6 Body Water % 50.1 Muscle Mass/Score 95.2 Basal Metabolic Rate/Score 1,367 Intake Visit Reasons: (TV) PO LSG 03/30/24 Labor Relations Representative Required: No Allergies amoxicillin Allergy (Mild, Uncoded 03/30/24 07:17) Facial Swelling Medication List - Last Reconciled 08/20/24 by KEVON Molina docusate sodium (Colace) 100 mg PO DAILY duloxetine 120 mg PO DAILY HPI Comments Details: This?a?53?yo female who is s/p LSG without hiatal hernia repair on?03/30/2024. Presents for 4 month post op visit. Weight today is 138.8 pounds, with a BMI of 23.8. There has been a 76.2 pound weight loss,(initial weight 215 pounds) since starting the program on 09/09/23 reflecting a 35.4 % total body weight loss and a weight loss of 45.7 pounds since surgery (operative weight 184.5 pounds) reflecting a 24.7 % TBWL since surgery. No complaints of nausea, emesis, abdominal pain or reflux. Reports infrequent but normal bowel movements every 2-3 days and uses stool softeners regularly. Taking celebrate mvi. Has noticed hair falling out and she did have 2 teeth requiring dental procedures. She does state that her teeth where somewhat problematic before. Present meal plan includes: Celebrate 4 in 1, 2 scoops, 8-10 shredded chicken over salad (4 forks protein/4 forks veg) Meal with 6 forks of protein and 6 of vegetables drinking 60 oz ? Exercise routine includes: [employer] gym, stairmaster, bike, elliptical 350-425 weights then cardio, 4 days per week [facility] Medical History Gastric reflux GERD (gastroesophageal reflux disease) HTN (hypertension) Hyperlipidemia Fibromyalgia Surgical History S/P laparoscopic sleeve gastrectomy History of esophagogastroduodenoscopy (EGD) (10/16/23) S/P excision of lipoma Hx of bladder endoscopy Hx of colonoscopy Family History Paternal Aunt Breast cancer Stomach cancer Father Throat cancer Social History Household Members: Spouse Housing: House Are you a primary acute care assistant to a significant other at home: No Do you presently have visiting nurse or other home services: No Alcohol intake: current Alcohol intake frequency: holidays/special occasions only Alcohol type: wine and hard liquor Patient Tobacco Use Status: Never used Tobacco Telehealth Telehealth Telehealth Platform: Telephone Location of provider rendering services: practice address Location of patient: other Patient Identification confirmed using: Name, : Yes Telehealth method: voice only Patient verbally consented to treatment: Yes Patient verbally consented to billing insurance company: Yes Patient informed of any privacy concerns related to visit: Yes Minutes spent on Phone/Video with Pt.: 12 Assessment & Plan Assessment & Plan (1) S/P laparoscopic sleeve gastrectomy: Code(s): Z98.84 - Bariatric surgery status Category: Surgical Plan: She may expand her meal plan to include other proteins such as fish, turkey, shrimp, pork if she wishes. She may add biotin supplement. I did strongly suggest adding calcium plus D twice daily. Encouraged to continue to text with any questions or concerns. We will arrange for follow-up appointments and six-month labs postoperatively.
[2024-08-20 08:47] VITALS: BMI 23.8
--- OUTSIDE RECORDS SUMMARY | 2024-08-20 11:56 | XMS_ITS | Clinical Summary ---
Author Organization [facility] it Address [address] [place] [address] Care Team Providers Care Websphere Commerce Developer Name Role Phone Unavailable Primary Care Provider Unavailabl e Social History Tobacco Use Types Packs/Day Years Used Date Smoking Tobacco: Never Assessed Comments Unknown Sex and Gender Information Value Date Recorded Sex Assigned at Not on file Legal Sex Female 11:03 PM EST Gender Identity Not on file Sexual Orientation Not on file Plan of Treatment Health Maintenance Due Date Last Done Comments Breast Cancer Screening 1970 DTaP,Tdap,and Td Vaccines (1 - Tdap) 09/06/1990 Hepatitis B Vaccines (1 of 3 - 19+ 3-dose series) 09/06/1990 Cervical Cancer Screening: P ap Smear 09/06/1992 Pneumococcal Vaccine: 50+ Ye ars (1 of 1 - PCV) 09/06/2021 Zoster Vaccines (1 of 2) 09/06/2021 COVID-19 Vaccine ( - 2023-2 5 season) 2024 Influenza Vaccine (#1) 2024 HIB Vaccines Aged Out No longer eligi ble based on patient's age to complete this topic HPV Vaccines Aged Out No longer eligi ble based on patient's age to complete this topic Hepatitis A Vaccines Aged Out No long er eligible based on patient's age to complete this topic IPV Vaccines Aged Out No longer eligi ble based on patient's age to complete this topic MMR Vaccines Aged Out No longer eligi ble based on patient's age to complete this topic Meningococcal ACWY Vaccine Aged Out N o longer eligible based on patient's age to complete this topic Meningococcal B Vacine Aged Out No lo nger eligible based on patient's age to complete this topic Pneumococcal Vaccine: Pediat rics (0 to 5 Years) and At-Risk Patients (6 to 64 Years) Aged Out No longer eligible b ased on patient's age to complete this topic RSV Immunization Patients Un hyacinth 20 months Aged Out No longer eligible b ased on patient's age to complete this topic Varicella Vaccines Aged Out No longer eligible based on patient's age to complete this topic
== END 2024-08-20 10:42 | disposition home or self-care (01) ==
LOC: HO.HBS 10:29
PROVIDERS: PCP Internal Medicine; Visit Provider Physician Assistant Surgical
DX: K91.2 Postsurgical malabsorption, not elsewhere classified (principal); Z98.84 Bariatric surgery status
CPT/HCPCS: 99213

== ENCOUNTER → 2024-08-20 10:29 | Outpatient (BNVA) | payer OTHER, SELFPAY | PROVIDERS: PCP Internal Medicine; Visit Provider Physician Assistant Surgical ==

== ENCOUNTER 2024-09-23 13:45 | Outpatient (AMB) | payer OTHER, SELFPAY ==
--- NOTE | 2024-09-23 13:35 | MHC.OFFVISWM ---
VS Expanded 09/23/24 13:38 Height 5 ft 4 in Weight 136 lb 6 oz BMI 23.4 Intake Visit Reasons: (TV) PO LSG 03/30/24 Inspector Salvage Required: No Allergies amoxicillin Allergy (Mild, Uncoded 03/30/24 07:17) Facial Swelling Medication List - Last Reconciled 09/23/24 by KEVON Molina docusate sodium (Colace) 100 mg PO DAILY duloxetine 120 mg PO DAILY HPI Comments Details: This?a?54?yo female who is s/p LSG without hiatal hernia repair on?03/30/2024. Presents for 6 month post op visit. Weight today is 136.6 pounds, with a BMI of 23.4. There has been a 78.4 pound weight loss,(initial weight 215 pounds) since starting the program on 09/09/23 reflecting a 35.6 % total body weight loss and a weight loss of 47.9 pounds since surgery (operative weight 184.5 pounds) reflecting a 24.7 % TBWL since surgery. No complaints of nausea, emesis, abdominal pain or reflux. Reports infrequent but normal bowel movements every 2-3 days and uses stool softeners regularly. Taking celebrate mvi, and calcium + D Present meal plan includes: Celebrate 4 in 1, 2 scoops, 8-10 shredded chicken over salad (4 forks protein/4 forks veg) Meal with 6 forks of protein and 6 of vegetables drinking 60 oz ? Exercise routine includes: [employer] gym, stairmaster, bike, elliptical 350-425 weights then cardio, 4-5 days per week Any post op complications: none RAMSEY: never DM: never HTN: resolved Hyperlipidemia: never GERD:?0-5 scale ??0 = no symptoms ??1 = symptoms noticeable but not bothersome 2 =symptoms bothersome but not daily ? 3 = symptoms bothersome and daily 4 = symptoms affect daily activities 5 = symptoms are incapacitating, unable to do daily activities ? How bad is the heartburn: 0 ? Heartburn while lying down: 0 ? Heartburn when standing up: 0 ? Heartburn after meals: 0 ? Does heartburn change your diet: 0 ? Does heartburn wake you up from sleep: 0 ? Do you have difficulty swallowin ? Do you have pain with swallowin ? If you take medicine for your reflux, does this affect your daily life: 0 Satisfaction with present condition - satisfied or not satisfied: satisfied [facility] Medical History Gastric reflux GERD (gastroesophageal reflux disease) HTN (hypertension) Hyperlipidemia Fibromyalgia Surgical History S/P laparoscopic sleeve gastrectomy History of esophagogastroduodenoscopy (EGD) (10/16/23) S/P excision of lipoma Hx of bladder endoscopy Hx of colonoscopy Family History Paternal Aunt Breast cancer Stomach cancer Father Throat cancer Social History Household Members: Spouse Housing: House Are you a primary point of care technician to a significant other at home: No Do you presently have visiting nurse or other home services: No Alcohol intake: current Alcohol intake frequency: holidays/special occasions only Alcohol type: wine and hard liquor Patient Tobacco Use Status: Never used Tobacco Telehealth Telehealth Telehealth Platform: Telephone Location of provider rendering services: practice address Location of patient: other Patient Identification confirmed using: Name, : Yes Telehealth method: voice only Patient verbally consented to treatment: Yes Patient verbally consented to billing insurance company: Yes Patient informed of any privacy concerns related to visit: Yes Minutes spent on Phone/Video with Pt.: 15 Assessment & Plan Assessment & Plan (1) S/P laparoscopic sleeve gastrectomy: Code(s): Z98.84 - Bariatric surgery status Category: Surgical Plan: Patient is doing very well, satisfied with her results. She does have very intermittent sporadic reflux associated with eating or drinking too quickly. We discussed the etiology behind this and she will adjust accordingly. She will continue her current meal plan. We will order six-month postop labs. Continue exercises she is doing. Encouraged to continue to send weight is weekly and text with any questions or concerns. Follow-up in the office in 3 months Orders: Orders Hemoglobin A1c Today E11.9 - Type 2 diabetes mellitus without complications, E78.5 - Hyperlipidemia, unspecified, I10 - Essential (primary) hypertension, Z98.84 - Bariatric surgery status Complete Blood Count Auto Diff Today E11.9 - Type 2 diabetes mellitus without complications, E78.5 - Hyperlipidemia, unspecified, I10 - Essential (primary) hypertension, Z98.84 - Bariatric surgery status Lipid Panel Today E11.9 - Type 2 diabetes mellitus without complications, E78.5 - Hyperlipidemia, unspecified, I10 - Essential (primary) hypertension, Z98.84 - Bariatric surgery status Comprehensive Met. Panel Today E11.9 - Type 2 diabetes mellitus without complications, E78.5 - Hyperlipidemia, unspecified, I10 - Essential (primary) hypertension, Z98.84 - Bariatric surgery status Zinc Today E11.9 - Type 2 diabetes mellitus without complications, E78.5 - Hyperlipidemia, unspecified, I10 - Essential (primary) hypertension, Z98.84 - Bariatric surgery status Vitamin A Today E11.9 - Type 2 diabetes mellitus without complications, E78.5 - Hyperlipidemia, unspecified, I10 - Essential (primary) hypertension, Z98.84 - Bariatric surgery status TSH reflex Free T4 Today E11.9 - Type 2 diabetes mellitus without complications, E78.5 - Hyperlipidemia, unspecified, I10 - Essential (primary) hypertension, Z98.84 - Bariatric surgery status Ferritin Today E11.9 - Type 2 diabetes mellitus without complications, E78.5 - Hyperlipidemia, unspecified, I10 - Essential (primary) hypertension, Z98.84 - Bariatric surgery status Insulin Today E11.9 - Type 2 diabetes mellitus without complications, E78.5 - Hyperlipidemia, unspecified, I10 - Essential (primary) hypertension, Z98.84 - Bariatric surgery status IRON PROFILE Today E11.9 - Type 2 diabetes mellitus without complications, E78.5 - Hyperlipidemia, unspecified, I10 - Essential (primary) hypertension, Z98.84 - Bariatric surgery status Vitamin B12 and Folate Today E11.9 - Type 2 diabetes mellitus without complications, E78.5 - Hyperlipidemia, unspecified, I10 - Essential (primary) hypertension, Z98.84 - Bariatric surgery status C Reactive Protein Today E11.9 - Type 2 diabetes mellitus without complications, E78.5 - Hyperlipidemia, unspecified, I10 - Essential (primary) hypertension, Z98.84 - Bariatric surgery status Vitamin B1 Today E11.9 - Type 2 diabetes mellitus without complications, E78.5 - Hyperlipidemia, unspecified, I10 - Essential (primary) hypertension, Z98.84 - Bariatric surgery status Vitamin D 25-OH Total Today E11.9 - Type 2 diabetes mellitus without complications, E78.5 - Hyperlipidemia, unspecified, I10 - Essential (primary) hypertension, Z98.84 - Bariatric surgery status
[2024-09-23 13:38] VITALS: BMI 23.4
--- OUTSIDE RECORDS SUMMARY | 2024-09-23 15:06 | XMS_ITS | Clinical Summary ---
Author Organization [facility] it Address [address] [place] [address] Care Team Providers Care Heat Treating Bluer Name Role Phone Unavailable Primary Care Provider [...]
== END 2024-09-23 13:50 | disposition home or self-care (01) ==
LOC: HO.HBS 13:45
PROVIDERS: PCP Internal Medicine; Visit Provider Physician Assistant Surgical
DX: Z71.3 Dietary counseling and surveillance (principal); Z98.84 Bariatric surgery status
CPT/HCPCS: 98012

== ENCOUNTER 2024-10-09 08:21 | Outpatient (REF) | payer OTHER, SELFPAY ==
--- OUTSIDE RECORDS SUMMARY | 2024-10-09 08:23 | XMS_ITS | Clinical Summary ---
Author Organization [facility] it Address [address] [place] [address] Care Team Providers Care Deicer Inspector Electric Name Role Phone Unavailable Primary Care Provider [...] - 2023-2 5 season) 2024 Influenza Vaccine (Season Ended) 2025 HIB Vaccines Aged Out No longer eligi [...] age to complete this topic Meningococcal B Vaccine Aged Out No l onger eligible based on patient's age to complete [...]
[2024-10-09 08:48] LABS: MANUAL DIFF FLAG NO
[2024-10-09 09:06] LABS: Basophils Percent Auto 0.4 % (0-2); Eosinophils Percent Auto 0.7 % (0-4); Hematocrit 36.7 % (37.0-47.0); Hemoglobin 11.7 g/dl (12.0-16.0); Imm Gran Abs Auto 0.01 X10*3/uL (0.00-0.03); Imm Gran Pct Auto 0.2 % (0.0-0.4); Lymphocytes Absolute Auto 1.2 X10*3/uL (1.2-4.9); Lymphocytes Percent Auto 26.9 % (20-40); Mean Corpuscular HGB Conc 31.9 g/dl (31.0-35.0); Mean Corpuscular Volume 84.8 fL (80.0-98.0); Monocytes Absolute Auto 0.4 X10*3/uL (0.1-1.2); Monocytes Percent Auto 7.9 % (2-11); Neutrophils Absolute Auto 2.9 x10*3/uL (2.0-8.3); Neutrophils Percent Auto 63.9 % (45-73); Platelet Count 328 X10*3/uL (160-400); Red Blood Count 4.33 X10*6/uL (4.20-5.50); Red Cell Distribution Width 14.3 % (11.0-16.0); White Blood Count 4.6 X10*3/uL (4.8-10.8)
[2024-10-09 09:35] LABS: Estimated Average Glucose 111 mg/dL; Hemoglobin A1C 112.8688 umol/L; Hemoglobin A1c % 5.5 % (<6.0); Total Hemoglobin (HGBA1C) 3122.8586 umol/L
[2024-10-09 10:03] LABS: Alanine Aminotransferase 17 U/L (0-31); Albumin Level 4.1 g/dL (3.5-5.0); Alkaline Phosphatase 64 U/L (39-117); Aspartate Amino Transferase 20 U/L (5-31); Bilirubin Total 0.4 mg/dL (0.0-1.0); Blood Urea Nitrogen 12 mg/dL (9-16); C Reactive Protein 0.16 mg/dL (< or = 0.50); Calcium 9.2 mg/dL (8.4-10.2); Cholesterol 221 mg/dL (<200); Estimated Glomerular Filt Rate > 60; Glucose Random 90 mg/dL (60-115); HDL Cholesterol 70 mg/dL (>40); Iron 67 mcg/dL (30-160); LDL Cholesterol Calculated 142 mg/dL (<100); Percent Iron Saturation 31 % (15-50); Total Iron Binding Capacity 218 mcg/dL (228-428); Total Protein 6.7 g/dL (6.5-8.0); Triglycerides 49 mg/dL (<150); Unsaturated Iron Binding 151 ug/dL
[2024-10-09 10:12] LABS: Ferritin 59 ng/mL (10-250); TSH reflex Free T4 1.09 uIU/mL (0.32-4.0); Vitamin D 25-OH Total 55.9 ng/mL (>30)
[2024-10-09 10:24] LABS: Anion Gap 11 (12-20)
[2024-10-09 10:26] LABS: Folate 12.2 ng/mL (> or = 4.0); Vitamin B12 417 pg/mL (200-900)
[2024-10-09 10:34] LABS: Carbon Dioxide 26 mmol/L (22-29); Chloride 108 mmol/L (96-108); Potassium 3.5 mmol/L (3.3-5.1); Sodium 143 mmol/L (135-145)
[2024-10-09 15:22] LABS: Insulin 2 uU/mL (2-29)
[2024-10-12 17:34] LABS: Zinc 58 mcg/dL (60-130)
[2024-10-13 00:53] LABS: Vitamin A 37 mcg/dL (38-98)
[2024-10-20 16:14] LABS: Vitamin B1 20 nmol/L (8-30)
== END 2024-10-09 08:22 | disposition home or self-care (01) ==
LOC: HO.LAB 08:21
PROVIDERS: PCP Internal Medicine; Visit Provider Physician Assistant Surgical
DX: E78.5 Hyperlipidemia, unspecified (principal); E11.9 Type 2 diabetes mellitus without complications; I10 Essential (primary) hypertension; Z98.84 Bariatric surgery status
CPT/HCPCS: 36415; 80053; 80061; 82306; 82607; 82728; 82746; 83036; 83525; 83540; 84425; 84443; 84590; 84630; 85025; 86140

== ENCOUNTER 2024-12-31 12:41 | Outpatient (AMB) | payer OTHER, SELFPAY ==
--- OUTSIDE RECORDS SUMMARY | 2024-12-31 12:43 | XMS_ITS | Patient Health Record ---
Author Organization [facility] [address] Address [address] [place] [address] Reason For Referral No Information Plan Of Treatment No Information
--- OUTSIDE RECORDS SUMMARY | 2024-12-31 12:43 | XMS_ITS | Clinical Summary ---
Author Organization [facility] it Address [address] [place] [address] Care Team Providers Care Pond Worker Name Role Phone Unavailable Primary Care Provider [...] 2023-2 5 season) 2024 Influenza Vaccine (#1) 2025 HIB Vaccines Aged Out No longer [...] 5 Years) and At-Risk Patients (6 to 49 Years) Aged Out No longer eligible b ased on patient's age to complete this topic RSV Immunization Patients Un hyacinth 20 months Aged Out No longer eligible b ased on patient's age to complete this topic Varicella Vaccines Aged Out No longer eligible based on patient's age to complete this topic
--- NOTE | 2024-12-31 12:56 | A.OFFVIS_ITS ---
VS Expanded 12/31/24 13:06 BP 138/79 Blood Pressure Location Rt brachial Blood Pressure Position Sitting Pulse 102 H Pulse Source Pulse Oximeter Temp 97.6 F Temperature Source Temporal Artery Scan Pulse Oximetry 99 Oxygen Delivery Method Room Air Height 5 ft 4 in Weight 134 lb 3.2 oz BMI 23.0 Body Fat % 22.2 Body Fat Mass 29.8 Fat Free Mass 104.2 Visceral Fat Rating 4.0 Body Water % 55.3 Body Water Mass 74.0 Muscle Mass/Score 99.0 Basal Metabolic Rate/Score 1,372 Intake Visit Reasons: (OV) PO LSG 03/30/24 Allergies amoxicillin Allergy (Mild, Uncoded 03/30/24 07:17) Facial Swelling HPI Comments Details: This?a?54?yo female who is s/p LSG without hiatal hernia repair on?03/30/2024. Presents for 9 month post op visit. Weight today is 134.2 pounds, with a BMI of 23. There has been a 80.8 pound weight loss,(initial weight 215 pounds) since starting the program on 09/09/23 reflecting a 37.5 % total body weight loss and a weight loss of 50.3 pounds since surgery (operative weight 184.5 pounds) reflecting a 27.2 % TBWL since surgery. She states that she was on a tour of [place] for 13 days traveling through [place], [place], and others. While she did not eat excessively, she did eat all different types of foods that she could try. She states that since then she has had reflux daily for the last 2-1/2 weeks. Of note, prior to her travels she had no reflux at all. Taking celebrate mvi, and calcium + D Present meal plan includes: Celebrate 4 in 1, 2 scoops, 8-10 shredded chicken over salad (4 forks protein/4 forks veg) Meal with 6 forks of protein and 6 of vegetables drinking 60 oz ? Exercise routine includes: [employer] gym, stairmaster, bike, elliptical 350-425 weights then cardio, 4-5 days per week [facility] Medical History Gastric reflux GERD (gastroesophageal reflux disease) HTN (hypertension) Hyperlipidemia Fibromyalgia Surgical History S/P laparoscopic sleeve gastrectomy History of esophagogastroduodenoscopy (EGD) (10/16/23) S/P excision of lipoma Hx of bladder endoscopy Hx of colonoscopy Family History Paternal Aunt Breast cancer Stomach cancer Father Throat cancer Social History Household Members: Spouse Housing: House Are you a primary career development coordinator/teacher to a significant other at home: No Do you presently have visiting nurse or other home services: No Alcohol intake: current Alcohol intake frequency: holidays/special occasions only Alcohol type: wine and hard liquor Patient Tobacco Use Status: Never used Tobacco Physical Exam Vital Signs: Last Vital Signs Temp 97.6 F 12/31/24 13:06 Pulse 102 H 12/31/24 13:06 BP 138/79 12/31/24 13:06 Pulse Ox 99 12/31/24 13:06 Oxygen Delivery Method Room Air 12/31/24 13:06 BMI result Body Mass Index 23.0 Const General: healthy appearing and no acute distress Resp Effort & Inspection: normal respiratory effort Auscultation: clear to auscultation bilaterally Cardio Rate: regular rate Rhythm: regular rhythm GI Auscultation: normal bowel sounds Extrem General: Yes normal to inspection Assessment & Plan Assessment & Plan (1) S/P laparoscopic sleeve gastrectomy: Code(s): Z98.84 - Bariatric surgery status Category: Surgical Plan: Patient will resume previously recommended meal plan, paying special attention to eating and drinking slowly. She may substitute her mid day meal with celebr ate 4 in 1 1 scoop in 8 oz of unsweetened almond milk or a Sudanese yogurt. She may substitute her evening meal with celebrate 4 in 1 2 scoops in 8 oz of unsweetened almond milk if she wishes. We will have her return to the office in approximately 1 month. (2) Gastric reflux: Code(s): K21.9 - Gastro-esophageal reflux disease without esophagitis Category: Medical Plan: Prior to her recent travel to [place], she was not having any reflux whatsoever. Check H pylori breath test as she may have acquired H pylori while traveling abroad. Additionally, add sucralfate 10 mL p.o. b.i.d. for 10 days. Orders: Orders H Pylori Breath Test Today Medications: New sucralfate please use for 10 days 10 mL PO BID 200 mL 0RF 10 days
[2024-12-31 13:06] VITALS: BP 138/79; PULSE 102; TEMP 36.4; O2SAT 99; BMI 23.0
== END 2024-12-31 13:24 | disposition home or self-care (01) ==
LOC: HO.HBS 12:42
PROVIDERS: PCP Internal Medicine; Visit Provider Physician Assistant Surgical
DX: K21.9 Gastro-esophageal reflux disease without esophagitis (principal); Z90.3 Acquired absence of stomach [part of]; Z98.84 Bariatric surgery status
CPT/HCPCS: 99213

== ENCOUNTER 2025-01-21 09:23 | Outpatient (REF) | payer OTHER, SELFPAY ==
--- OUTSIDE RECORDS SUMMARY | 2025-01-24 11:58 | XMS_ITS | Encounter Summary ---
Author Organization [facility] Address [address] [place] [address] Phone Care Team Providers Care Bowling Alley Manager Name Role Phone Benny Reeves MD Primary Care Provider [phone]- [phone] Reason for Visit * Reason Onset Date Comments Mastopexy 01/04/2025 Encounter Details Date Type Department Care Team (Late st Contact Info) Description 01/04/2025 Telephone [facility] [employer] [facility] [facility] Plastic Surgery [address] [place] [address] Nilton Bland MD [address] [place] [address] [email or web address] Mastopexy Social History Tobacco Use Types Packs/Day Years Used Date Smoking Tobacco: Never Passive Smoke Exposure: Never Smokeless Tobacco: Never Alcohol Use Standard Drinks/Week Comments Yes 1 (1 standard drink = 0.6 oz pur e alcohol) once in while Education Answer Date Recorded Are you interested in more education? Not on rogelio e 07/22/2024 Are you concerned about learning? Not on file 07/22/2024 No 07/22/2024 No 07/22/2024 Digital Access Answer Date Recorded No 07/22/2024 No 07/22/2024 Reliable internet access at home? Not on file 07/22/2024 Device with a working camera? Not on file Comments Unknown Sex and Gender Information Value Date Recorded Sex Assigned at Not on file Legal Sex Female 4:23 PM EST Gender Identity Not on file Sexual Orientation Not on file documented as of this encounter Progress Notes * TyroneThuy - 01/04/2025 3:16 PM EDT LVM advising to pt the prices for brachioplasty & for an abdominoplasty go home same day & overnight stay, as she already got quote for mastopexy. Advised Dr. Bland is booking Feb 2026 and to call back to book or discuss further. documented in this encounter Plan of Treatment Upcoming Encounters Date Type Department Care Team (Late st Contact Info) Description 08/22/2025 4:00 PM EST Office Visit [facility] Plastic Surgery [address] [place] [address] Yvonne Robertson PA-C [address] [place] [address] 02/06/2026 3:30 PM EDT Office Visit [facility] Plastic Surgery [address] [place] [address] Nilton Bland MD [address] [place] [address] 02/22/2026 Procedure Pass OR Admitting Dept - Virtual Department [address] [place] [address] 02/22/2026 11:19 AM EDT Hospital Encounter OR Admitting Dept - Virtual Department [address] [place] [address] Nilton Bland MD [address] [place] [address] 02/22/2026 11:19 AM EDT - 02/22/2026 2:56 PM EDT Surgery OR Admitting Dept - Virtual Department [address] [place] [address] Nilton Bland MD [address], [address] [address] MASTOPEXY 02/28/2026 8:30 AM EDT Office Visit [facility] Plastic Surgery [address] [place] [address] Yvonne Robertson PA-C [address] [place] [address], [address] [address] 03/07/2026 1:30 PM EDT Office Visit [facility] Plastic Surgery [address] [place] [address] Yvonne Robertson PA-C [address] [place] [address] [email or web address] Scheduled Procedures Name Priority Associated Diagnoses Date/Ti me MASTOPEXY Elastosis of skin 02/22/2026 11:19 AM EDT documented as of this encounter Visit Diagnoses Not on filedocumented in this encounter Care Teams Bowling Alley Manager Relationship Specialty Start Date End Date Benny Reeves MD [address] [facility] [address] [place] [address] PCP - General Internal Medicine 07/22/24 documented as of this encounter Additional Source Comments The information contained in this document represents components of the legal health record. It is not the complete legal health record.[facility]
--- OUTSIDE RECORDS SUMMARY | 2025-01-24 11:58 | XMS_ITS | Clinical Summary ---
Author Organization [facility] ity Address [address] [place] [address] Care Team Providers Care Sponsorship Manager Name Role Phone Unavailable Primary Care Provider [...] Vaccine ( - 2023-2 5 season) 2024 Depression Screening 06/23/2024 Influenza Vaccine (#1) 2025 HIB Vaccines Aged [...]
== END 2025-01-21 09:24 | disposition home or self-care (01) ==
LOC: HO.LNP 09:23
PROVIDERS: Visit Provider Physician Assistant Surgical
DX: Z11.0 Encounter for screening for intestinal infectious diseases (principal)
CPT/HCPCS: 83013

== ENCOUNTER 2025-01-26 09:30 | Outpatient (AMB) | payer OTHER, SELFPAY ==
[2025-01-26 08:18] VITALS: BMI 22.9
--- NOTE | 2025-01-26 08:18 | MHC.OFFVISWM ---
VS Expanded 01/26/25 08:18 Height 5 ft 4 in Weight 133 lb 4 oz BMI 22.9 Body Fat % 26 Fat Free Mass 99.4 Visceral Fat Rating 5 Body Water % 50.8 Muscle Mass/Score 93.6 Basal Metabolic Rate/Score 1,334 Intake Visit Reasons: TV PO LSG 03/30/24 Heritage Consultant Required: No Allergies amoxicillin Allergy (Mild, Uncoded 03/30/24 07:17) Facial Swelling Medication List - Last Reconciled 01/26/25 by KEVON Molina docusate sodium (Colace) 100 mg PO DAILY duloxetine 120 mg PO DAILY HPI Comments Details: This?a?54?yo female who is s/p LSG without hiatal hernia repair on?03/30/2024. Presents for 10 month post op visit. Weight today is 133.4 pounds, with a BMI of 22.9. There has been a 81.6 pound weight loss,(initial weight 215 pounds) since starting the program on 09/09/23 reflecting a 37.9 % total body weight loss and a weight loss of 51.1 pounds since surgery (operative weight 184.5 pounds) reflecting a 27.6 % TBWL since surgery. She states that since then she has had reflux daily for the last 2-1/2 weeks. Of note, prior to her travels she had no reflux at all. Taking celebrate mvi, and calcium + D H. Pylori 01/21/25 - negative. Reflux improved. Now not eating and drinking at the same time. Hasn't been doing first shake in the morning. Wants to go back to [employer] Present meal plan includes: Celebrate 4 in 1, 2 scoops, 8-10 shredded chicken over salad (4 forks protein/4 forks veg) Meal with 6 forks of protein and 6 of vegetables drinking 60 oz ? Exercise routine includes: [employer] gym, stairmaster, bike, elliptical 350-425 weights then cardio, 3 days per week [facility] Medical History Gastric reflux GERD (gastroesophageal reflux disease) HTN (hypertension) Hyperlipidemia Fibromyalgia Surgical History S/P laparoscopic sleeve gastrectomy History of esophagogastroduodenoscopy (EGD) (10/16/23) S/P excision of lipoma Hx of bladder endoscopy Hx of colonoscopy Family History Paternal Aunt Breast cancer Stomach cancer Father Throat cancer Social History Household Members: Spouse Housing: House Are you a primary manager respiratory care to a significant other at home: No Do you presently have visiting nurse or other home services: No Alcohol intake: current Alcohol intake frequency: holidays/special occasions only Alcohol type: wine and hard liquor Patient Tobacco Use Status: Never used Tobacco Telehealth Telehealth Telehealth Platform: Telephone Location of provider rendering services: practice address Location of patient: address on file Patient Identification confirmed using: Name, : Yes Telehealth method: voice only Patient verbally consented to treatment: Yes Patient verbally consented to billing insurance company: Yes Patient informed of any privacy concerns related to visit: Yes Minutes spent on Phone/Video with Pt.: 15 Assessment & Plan Assessment & Plan (1) S/P laparoscopic sleeve gastrectomy: Code(s): Z98.84 - Bariatric surgery status Category: Surgical Plan: Patient states that she had not been following the meal plan, ?feeling lazy? about making her shake in the morning. She did much better with the ready to drink [employer] life shake. We will change her meal plan accordingly: Celebrate 4 in 1, 2 scoops, 8-10 shredded chicken over salad (4 forks protein/4 forks veg) Meal with 6 forks of protein and 6 of vegetables Encouraged to continue her exercise routine as she is doing. She has achieved a healthy weight and healthy lifestyle. She recognized that her reflux symptoms were worse because she was eating and drinking at the same time and doing too much. With behavioral correction, this has significantly improved. We will have her return to the office for her 1 year follow-up, check labs at that time.
--- OUTSIDE RECORDS SUMMARY | 2025-01-26 10:00 | XMS_ITS | Patient Health Record ---
Author Organization [facility] Address [address] [place] [address] Reason For Referral No Information Plan Of Treatment No Information
--- OUTSIDE RECORDS SUMMARY | 2025-01-26 10:00 | XMS_ITS | Encounter Summary ---
Author Organization [facility] Address [address] [place] [address] Phone Care Team Providers Care Industrial Eng Name Role Phone Benny Reeves MD Primary Care Provider [phone]- [phone] Reason for Visit * Reason Onset Date Comments Mastopexy 01/04/2025 Encounter Details Date Type Department Care Team (Late st Contact Info) Description 01/04/2025 Telephone [facility] Plastic Surgery [address] [place] [address] Nilton Bland MD [address] [place] [phone] [email or web address] Mastopexy Social History Tobacco Use Types Packs/Day [...] Description 08/22/2025 4:00 PM EST Office Visit [facility] Plastic Surgery [address] [place] [address] Yvonne Robertson PA-C [address] [place] [address] 02/06/2026 3:30 PM EDT Office Visit [facility] Plastic Surgery [address] [place] [address] Nilton Bland MD [address] [place] [phone] [email or web address] 02/22/2026 Procedure Pass OR Admitting Dept - Virtual Department [address] [place] [address] 02/22/2026 11:19 AM EDT Hospital Encounter OR Admitting Dept - Virtual Department [address] [place] [address] Nilton Bland MD [address] [place] [address] [email or web address] 02/22/2026 11:19 AM EDT - 02/22/2026 2:56 PM EDT Surgery OR Admitting Dept - Virtual Department [address] [place] [address] Nilton Bland MD [address], [address] [address] MASTOPEXY 02/28/2026 8:30 AM EDT Office Visit [facility] Plastic Surgery [address] [place] [address] Yvonne Robertson PA-C [address] [place] [address], [address] [address] 03/07/2026 1:30 PM EDT Office Visit [facility] Plastic Surgery [address] [place] [address] Yvonne Robertson PA-C [address] [place] [address] [email or web address] Scheduled Procedures Name Priority Associated Diagnoses Date/Ti me MASTOPEXY Elastosis of skin 02/22/2026 11:19 AM EDT documented as of this encounter Visit Diagnoses Not on filedocumented in this encounter Care Teams Industrial Eng Relationship Specialty Start Date End Date Benny Reeves MD [address] [facility] [address] [place] [address] PCP - General Internal Medicine 07/22/24 documented as of this encounter Additional Source Comments The information contained in this document represents components of the legal health record. It is not the complete legal health record.[facility]
--- OUTSIDE RECORDS SUMMARY | 2025-01-26 10:00 | XMS_ITS | Clinical Summary ---
Author Organization [facility] ity Address [address] [place] [address] Care Team Providers Care Director Trial Name Role Phone Unavailable Primary Care Provider [...]
== END 2025-01-26 09:50 | disposition home or self-care (01) ==
LOC: HO.HBS 09:37
PROVIDERS: PCP Internal Medicine; Visit Provider Physician Assistant Surgical
DX: Z71.3 Dietary counseling and surveillance (principal); Z90.3 Acquired absence of stomach [part of]; Z98.84 Bariatric surgery status
CPT/HCPCS: 98013

== ENCOUNTER 2025-04-06 16:24 | Outpatient (AMB) | payer OTHER, SELFPAY ==
--- NOTE | 2025-04-06 17:17 | MHC.OFFVISWM ---
VS Expanded 04/06/25 17:22 Height 5 ft 4 in Weight 136 lb BMI 23.3 Intake Visit Reasons: TV PO LSG 03/30/24 Allergies amoxicillin Allergy (Mild, Uncoded 03/30/24 07:17) Facial Swelling Medication List - Last Reconciled 04/06/25 by KEVON Byrd docusate sodium (Colace) 100 mg PO DAILY HPI Comments Details: This?is a 54?yo F who is s/p LSG 03/30/2024. Presents for 1 year post op visit. Weight at last visit on 01/27/2024 was 133.4 lbs; weight today is 136lbs. No complaints of nausea, emesis, abdominal pain or reflux, or constipation. She notes occasional increasing hunger. Had a consult for breast lift due to tissue laxity. Was able to stop duloxetine and feels well without it. Present meal plan includes: Celebrate 4 in 1, 2 scoops, 8-10 shredded chicken over salad (4 forks protein/4 forks veg) Meal with 6 forks of protein and 6 of vegetables Exercise routine includes: [employer] gym, stairmaster, bike, elliptical 350-425 weights then cardio, 3 days per week recently injured arm (laundry basket) [facility] Medical History Gastric reflux GERD (gastroesophageal reflux disease) HTN (hypertension) Hyperlipidemia Fibromyalgia Surgical History S/P laparoscopic sleeve gastrectomy History of esophagogastroduodenoscopy (EGD) (10/16/23) S/P excision of lipoma Hx of bladder endoscopy Hx of colonoscopy Family History Paternal Aunt Breast cancer Stomach cancer Father Throat cancer Social History Household Members: Spouse Housing: House Are you a primary healthcare administrative assistant to a significant other at home: No Do you presently have visiting nurse or other home services: No Alcohol intake: current Alcohol intake frequency: holidays/special occasions only Alcohol type: wine and hard liquor Patient Tobacco Use Status: Never used Tobacco Telehealth Telehealth Telehealth Platform: Telephone Location of provider rendering services: practice address Location of patient: address on file Patient Identification confirmed using: Name, : Yes Telehealth method: voice only Patient verbally consented to treatment: Yes Patient verbally consented to billing insurance company: Yes Patient informed of any privacy concerns related to visit: Yes Minutes spent on Phone/Video with Pt.: 16 Assessment & Plan Assessment & Plan (1) S/P laparoscopic sleeve gastrectomy: Code(s): Z98.84 - Bariatric surgery status Category: Surgical Plan Suggested options for when pt feels hungry- small portion of protein, or fruit or veg. She will resume normal level of activity/exercise when recovered from injury. Annual labs ordered. RTC 6mo. Orders: Orders Insulin Today Z98.84 - Bariatric surgery status Comprehensive Met. Panel Today Z.84 - Bariatric surgery status Ferritin Today Z98.84 - Bariatric surgery status Vitamin B12 and Folate Today Z98.84 - Bariatric surgery status Lipid Panel Today Z98.84 - Bariatric surgery status Hemoglobin A1c Today Z98.84 - Bariatric surgery status Zinc Today Z98.84 - Bariatric surgery status Vitamin A Today Z98.84 - Bariatric surgery status Vitamin D 25-OH Total Today Z98.84 - Bariatric surgery status Complete Blood Count Auto Diff Today Z98.84 - Bariatric surgery status C Reactive Protein Today Z98.84 - Bariatric surgery status TSH reflex Free T4 Today Z98.84 - Bariatric surgery status Vitamin B1 Today Z98.84 - Bariatric surgery status IRON PROFILE Today Z98.84 - Bariatric surgery status
[2025-04-06 17:22] VITALS: BMI 23.3
--- OUTSIDE RECORDS SUMMARY | 2025-04-06 19:28 | XMS_ITS | Clinical Summary ---
Author Organization [facility] it Address [address] [place] [address] Care Team Providers Care Hospice Clinical Manager Name Role Phone Unavailable Primary Care [...] 09/06/2021 Zoster Vaccines (1 of 2) 09/06/2021 Depression Screening 06/23/2024 COVID-19 Vaccine (1 - 2023-2 5 season) 2025 Influenza Vaccine (#1) 2025 RSV Immunization Adult Patie nts (1 - 1-dose 75+ series) 09/06/2046 HIB Vaccines Aged Out No longer eligi [...]
--- OUTSIDE RECORDS SUMMARY | 2025-04-06 19:28 | XMS_ITS | Clinical Summary ---
Author Organization [facility] Address [address] [place] [address] Phone Care Team Providers Care Groundwater Monitoring Technician Name Role Phone Benny Reeves MD Primary Care Provider [phone] Allergies Active Allergy Reactions Criticality Noted Date Comments Amoxicillin Swelling 01/03/2025 Medications DULoxetine (CYMBALTA) 60 MG capsule Take 120 mg by mouth daily. Active PROVENTIL HFA 90 mcg/actuation inhaler See Instructions, 1-2 inhalation Inhalation Every 6 hours as beeded for chest tightness or cough, # 18 Gm, Refills 0, Tot. Refills 0, Maintenance, 11/26/24 12:00:00 PM EDT, Instructions Replace Required Details Aerosol, Route to Pharmacy Electronically, [facility][id number] , [id number], 165, cm, 11/26/24 11:49:00 EDT, Height, 62, kg, 11/20/24 12:31:00 EDT, Dry Weight 5 Active omeprazole (PRILOSEC OTC) 20 MG tablet Take 1 tablet (20 mg total) by mouth as needed (as needed). 5 Active Encounters Date Type Department Care Team Description 01/04/2025 Telephone [facility] [address] [place], [place] [id number] Nilton Bland MD Mastopexy from Last 3 Months Family History Medical History Relation Comments Hypertension Father Stroke Father Throat cancer Father Hypertension Mother Stroke Mother Relation Status Comments Father Mother Social History Tobacco Use Types Packs/Day Years Used Date Smoking Tobacco: Never Passive Smoke Exposure: Never Smokeless Tobacco: Never Tobacco Cessation:Counseling Given: Not Answered Alcohol Use Standard Drinks/Week Comments Yes 1 [...] on file Sexual Orientation Not on file Last Filed Vital Signs Vital Sign Reading Time Taken Comments Blood Pressure 145/84 01/03/2025 9:22 AM EDT Pulse 75 01/03/2025 9:22 AM EDT Temperature - - Respiratory Rate - - Oxygen Saturation - - Inhaled Oxygen Concentration - - Weight 62.6 kg (138 lb) 01/03/2025 9:22 AM EDT Height 162.7 cm (5' 4.06 ) 01/03/2025 9:22 AM ED T Body Mass Index 23.65 01/03/2025 9:22 AM EDT Plan of Treatment Upcoming Encounters Date Type Department Care Team (Late st Contact Info) Description 08/22/2025 4:00 PM EST Office Visit [facility] [address] [place] [id number] Yvonne Robertson PA-C [address] [place] [phone] [email or web address] 02/06/2026 3:30 PM EDT Office Visit [facility] [address] [place] [address] Nilton Bland MD [address] [place] [phone] 02/22/2026 Procedure Pass OR Admitting Dept - Virtual Department [address] [place] [phone] 02/22/2026 11:19 AM EDT Hospital Encounter OR Admitting Dept - Virtual Department [address] [place] [address] Nilton Bland MD [address] [place] [phone] 02/22/2026 11:19 AM EDT - 02/22/2026 2:56 PM EDT Surgery OR Admitting Dept - Virtual Department [address] [place] [phone] Nilton Bland MD [address] [place] [phone] MASTOPEXY 02/28/2026 8:30 AM EDT Office Visit [facility] [address] [place] [address] Yvonne Robertson PA-C [address] [place] [phone] 03/07/2026 1:30 PM EDT Office Visit [facility] [address] [place] [address] Yvonne Robertson PA-C [address] [place] [phone] Scheduled Procedures Name Priority Associated Diagnoses Date/Ti me MASTOPEXY Elastosis of skin 02/22/2026 11:19 AM EDT Health Maintenance Due Date Last Done Comments Adult Td,Tdap Booster 1971 LIPID PANEL 1971 DEPRESSION SCREENING 1983 HEPATITIS C SCREENING 09/06/1989 HIV ONE-TIME SCREENING (18-6 5 YEARS) 09/06/1989 PAP SMEAR 09/06/1992 MAMMOGRAM 2011 COLOGUARD 09/06/2016 COLONOSCOPY 09/06/2016 COLORECTAL CANCER SCREENING 09/06/2016 FIT TEST 09/06/2016 FOBT 09/06/2016 SIGMOIDOSCOPY 09/06/2016 VIRTUAL COLONOSCOPY 09/06/2016 PNEUMOCOCCAL VACCINES (50+ y ears) (1 of 1 - PCV) 09/06/2021 ZOSTER VACCINES (1 of 2) 09/06/2021 INFLUENZA VACCINE (#1) 2025 COVID-19 VACCINE (1 - 2024-2 6 season) 2025 RSV VACCINE (1 - 1-dose 75+ series) 09/06/2046 SMOKING STATUS SCREENING (On ce After 26 Yrs) Completed 01/03/2025 HEPATITIS A VACCINES Aged Out No long er eligible based on patient's age to complete this topic HIB VACCINES Aged Out No longer eligi ble based on patient's age to complete this topic MENINGOCOCCAL VACCINES (ACWY) Aged Out No longer eligible based on patient's age to complete this topic MENINGOCOCCAL VACCINES (B) Aged Out N o longer eligible based on patient's age to complete this topic Medical Devices Not on file Insurance [employer] PPO CIGBECK PPO [employer] PPO [employer]IG[employer] PPO [employer]IG[employer] PPO CIGNA PPO Care Teams Groundwater Monitoring Technician Relationship Specialty Start Date End Date Benny Reeves MD [address] [facility] [address] [place] [address] PCP - General Internal Medicine 07/22/24 Additional Source Comments The information contained in this document represents components of the legal health record. It is not the complete legal health record.[facility]
--- OUTSIDE RECORDS SUMMARY | 2025-04-06 19:28 | XMS_ITS | Patient Health Record ---
Author Organization [facility] [address] Address [address] [place] [address] Reason For Referral No Information Plan Of Treatment No Information
== END 2025-04-06 17:39 | disposition home or self-care (01) ==
LOC: HO.HBS 16:24
PROVIDERS: PCP Internal Medicine; Visit Provider Physician Assistant Surgical
DX: Z71.3 Dietary counseling and surveillance (principal); Z98.84 Bariatric surgery status
CPT/HCPCS: 98013